=== PATIENT | female | born 2000 | race Caucasian/White ===

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

== ENCOUNTER 2020-12-31 14:26 | Emergency (ER) | payer OTHER ==
[2020-12-31 14:36] VITALS: TEMP 98.5
[2020-12-31] MEDS ORDERED: SODIUM CHLORIDE 0.9% 500 ML 500 ML IV STA (14:47)
--- NOTE | 2020-12-31 15:05 | XR ---
EXAMINATION TYPE: XR chest 1V portable DATE OF EXAM: 12/31/2020 COMPARISON: 04/12/2019 HISTORY: Chest pain TECHNIQUE: FINDINGS: Heart and mediastinum are normal. Lungs are clear. Diaphragm is normal. Bony thorax appears normal. IMPRESSION: Normal chest. No change.
[2020-12-31 15:07] LABS: Basophils % (A) 1 %; Eosinophils # (A) 0.1 k/uL (0-0.7); Eosinophils % (A) 1 %; HCT 44.4 % (34.0-46.0); HGB 15.6 gm/dL (11.4-16.0); Lymphocytes # (A) 1.4 k/uL (1.0-4.8); Lymphocytes % (A) 27 %; MCH 31.1 pg (25.0-35.0); MCHC 35.1 g/dL (31.0-37.0); MCV 88.8 fL (80.0-100.0); Mean Platelet Volume 8.5; Monocytes # (A) 0.3 k/uL (0-1.0); Monocytes % (A) 7 %; Neutrophils # (A) 3.1 k/uL (1.3-7.7); Neutrophils % (A) 63 %; Platelet Count 169 k/uL (150-450); RBC 4.99 m/uL (3.80-5.40); RDW 11.9 % (11.5-15.5)
[2020-12-31 15:22] LABS: D-Dimer 0.25 mg/L FEU (<0.60); INR 1.2 (<1.2); Partial Thromboplastin Time 25.8 sec (22.0-30.0); Prothrombin Time 12.5 sec (9.0-12.0)
[2020-12-31 15:39] LABS: ALT 8 U/L (4-34); AST 18 U/L (14-36); African American GFR (CKD) >90 (>60 ml/min/1.73 sqM); Albumin 4.8 g/dL (3.5-5.0); Alkaline Phosphatase 52 U/L (38-126); Anion Gap 12 mmol/L; Blood Urea Nitrogen 12 mg/dL (7-17); Calcium 9.7 mg/dL (8.4-10.2); Carbon Dioxide 21 mmol/L (22-30); Chloride 106 mmol/L (98-107); Glucose 85 mg/dL (74-99); Lipase 67 U/L (23-300); Magnesium 1.9 mg/dL (1.6-2.3); Non-African American GFR(CKD) >90 (>60 ml/min/1.73 sqM); Potassium 3.7 mmol/L (3.5-5.1); Sodium 139 mmol/L (137-145); Total Bilirubin 0.9 mg/dL (0.2-1.3); Total Protein 7.7 g/dL (6.3-8.2)
[2020-12-31] MEDS ORDERED: KETOROLAC 15 MG/ML 1 ML VIAL IVP STA (15:57)
[2020-12-31 16:14] VITALS: BP 106/63; PULSE 75; RESP 16
--- NOTE | 2020-12-31 16:32 | ED ---
General Adult HPI - General Chief complaint: Chest Pain Stated complaint: Chest Pain Time Seen by Provider: 12/31/20 14:40 Source: patient Mode of arrival: wheelchair Limitations: no limitations - History of Present Illness Initial comments: 20-year-old female presents to the emergency room for a chief complaint of chest pain. Patient reports she has left-sided anterior chest pain that is very sharp in nature. States it comes and goes. States it has been ongoing for about 30 minutes prior to arrival. Patient states that it hurts worse when she breathes a deep breath. Patient states she has had the same before and seen cardiology. She had a Holter monitor placed with only findings being "an early heartbeat." She denies any shortness of breath with this. Denies any swelling of her legs. Denies any calf pain. Denies oral contraceptive pills.Patient has no other complaints at this time including shortness of breath, abdominal pain, nausea or vomiting, headache, or visual changes. - Related Data Home Medications Medication Instructions Recorded Confirmed No Known Home Medications 12/31/20 12/31/20 Allergies Allergy/AdvReac Type Severity Reaction Status Date / Time dexamethasone [From Decadron] Allergy Swelling Verified 12/31/20 15:56 dexamethasone sod phosphate Allergy Swelling Verified 12/31/20 15:56 [From Decadron] dexmethylphenidate HCl Allergy Nausea & Verified 12/31/20 15:56 [From Focalin] Vomiting methylphenidate HCl Allergy Unknown Verified 12/31/20 15:56 [From Concerta] sulfamethoxazole Allergy Unknown Verified 12/31/20 15:56 [From Bactrim] trimethoprim [From Bactrim] Allergy Unknown Verified 12/31/20 15:56 Review of Systems ROS Statement: Those systems with pertinent positive or pertinent negative responses have been documented in the HPI. ROS Other: All systems not noted in ROS Statement are negative. Past Medical History Past Medical History: Asthma Additional Past Medical History / Comment(s): scoliosis, add, History of Any Multi-Drug Resistant Organisms: MRSA Date of last positivie culture/infection: 2018 MDRO Source:: left hip, leg Past Surgical History: Appendectomy, Ear Surgery, Tonsillectomy Past Psychological History: ADD/ADHD Smoking Status: Never smoker Past Alcohol Use History: None Reported Past Drug Use History: None Reported - Past Family History Mother Family Medical History: No Reported History General Exam Limitations: no limitations General appearance: alert, in no apparent distress Head exam: Present: atraumatic Eye exam: Present: normal appearance, PERRL, EOMI. Absent: scleral icterus, conjunctival injection ENT exam: Present: normal exam, mucous membranes moist Neck exam: Present: normal inspection, full ROM. Absent: tenderness Respiratory exam: Present: normal lung sounds bilaterally. Absent: respiratory distress, wheezes, rales, rhonchi, stridor Cardiovascular Exam: Present: regular rate, normal rhythm, normal heart sounds GI/Abdominal exam: Present: soft, normal bowel sounds. Absent: distended, tenderness, guarding, rebound, rigid Neurological exam: Present: alert Course Vital Signs 12/31/20 12/31/20 14:34 16:13 Temperature 98.5 F Pulse Rate 107 H 75 Respiratory 17 16 Rate Blood Pressure 113/81 106/63 O2 Sat by Pulse 98 100 Oximetry EKG Findings - EKG Comments: EKG Findings:: NSR, vent rate 64, pr int 140, qtc 404 Medical Decision Making - Medical Decision Making Vitals are stable. CXR immediately obtained, no pneumothorax. EKG is nonischemic. CBC CMP unremarkable. Troponin is negative. D-dimer is negative. HCG negative. Patient given Toradol did have improvement in symptoms. Symptoms are atypical and reproducible. No typical symptoms such as shortness of breath, radiating pain, diaphoresis, nausea. At this time patient will follow up again with cardiology and return here for any worsening symptoms. Discussed case with Dr Kaiser - Lab Data Result diagrams: 12/31/20 14:45 12/31/20 14:45 Lab Results 12/31/20 12/31/20 12/31/20 Range/Units 14:45 14:45 14:45 WBC 5.0 (4.0-11.0) k/uL RBC 4.99 (3.80-5.40) m/uL Hgb 15.6 (11.4-16.0) gm/dL Hct 44.4 (34.0-46.0) % MCV 88.8 (80.0-100.0) fL MCH 31.1 (25.0-35.0) pg MCHC 35.1 (31.0-37.0) g/dL RDW 11.9 (11.5-15.5) % Plt Count 169 (150-450) k/uL MPV 8.5 Neutrophils % 63 % Lymphocytes % 27 % Monocytes % 7 % Eosinophils % 1 % Basophils % 1 % Neutrophils # 3.1 (1.3-7.7) k/uL Lymphocytes # 1.4 (1.0-4.8) k/uL Monocytes # 0.3 (0-1.0) k/uL Eosinophils # 0.1 (0-0.7) k/uL Basophils # 0.0 (0-0.2) k/uL PT 12.5 H (9.0-12.0) sec INR 1.2 H (<1.2) APTT 25.8 (22.0-30.0) sec D-Dimer 0.25 (<0.60) mg/L FEU Sodium 139 (137-145) mmol/L Potassium 3.7 (3.5-5.1) mmol/L Chloride 106 (98-107) mmol/L Carbon Dioxide 21 L (22-30) mmol/L Anion Gap 12 mmol/L BUN 12 (7-17) mg/dL Creatinine 0.79 (0.52-1.04) mg/dL Est GFR (CKD-EPI)AfAm >90 (>60 ml/min/1.73 sqM) Est GFR (CKD-EPI)NonAf >90 (>60 ml/min/1.73 sqM) Glucose 85 (74-99) mg/dL Calcium 9.7 (8.4-10.2) mg/dL Magnesium 1.9 (1.6-2.3) mg/dL Total Bilirubin 0.9 (0.2-1.3) mg/dL AST 18 (14-36) U/L ALT 8 (4-34) U/L Alkaline Phosphatase 52 (38-126) U/L Troponin I (0.000-0.034) ng/mL Total Protein 7.7 (6.3-8.2) g/dL Albumin 4.8 (3.5-5.0) g/dL Lipase 67 (23-300) U/L Urine HCG, Qual (Not Detectd) 12/31/20 12/31/20 Range/Units 14:45 14:45 WBC (4.0-11.0) k/uL RBC (3.80-5.40) m/uL Hgb (11.4-16.0) gm/dL Hct (34.0-46.0) % MCV (80.0-100.0) fL MCH (25.0-35.0) pg MCHC (31.0-37.0) g/dL RDW (11.5-15.5) % Plt Count (150-450) k/uL MPV Neutrophils % % Lymphocytes % % Monocytes % % Eosinophils % % Basophils % % Neutrophils # (1.3-7.7) k/uL Lymphocytes # (1.0-4.8) k/uL Monocytes # (0-1.0) k/uL Eosinophils # (0-0.7) k/uL Basophils # (0-0.2) k/uL PT (9.0-12.0) sec INR (<1.2) APTT (22.0-30.0) sec D-Dimer (<0.60) mg/L FEU Sodium (137-145) mmol/L Potassium (3.5-5.1) mmol/L Chloride (98-107) mmol/L Carbon Dioxide (22-30) mmol/L Anion Gap mmol/L BUN (7-17) mg/dL Creatinine (0.52-1.04) mg/dL Est GFR (CKD-EPI)AfAm (>60 ml/min/1.73 sqM) Est GFR (CKD-EPI)NonAf (>60 ml/min/1.73 sqM) Glucose (74-99) mg/dL Calcium (8.4-10.2) mg/dL Magnesium (1.6-2.3) mg/dL Total Bilirubin (0.2-1.3) mg/dL AST (14-36) U/L ALT (4-34) U/L Alkaline Phosphatase (38-126) U/L Troponin I <0.012 (0.000-0.034) ng/mL Total Protein (6.3-8.2) g/dL Albumin (3.5-5.0) g/dL Lipase (23-300) U/L Urine HCG, Qual Not Detected (Not Detectd) Disposition Clinical Impression: Atypical chest pain Disposition: HOME SELF-CARE Condition: Good Instructions (If sedation given, give patient instructions): Chest Pain (ED), Costochondritis (ED) Additional Instructions: Take Motrin and Tylenol for pain. Please follow-up with your doctor in one to 2 days. Return to the emergency room for any worsening symptoms. Is patient prescribed a controlled substance at d/c from ED?: No Referrals: Henry Mejía DO [Primary Care Provider] - 1-2 days Time of Disposition: 16:41
== END 2020-12-31 16:51 | disposition home or self-care (01) ==
LOC: EC 14:26
DX: R07.89 Other chest pain (principal); Z88.1 Allergy status to other antibiotic agents; Z88.2 Allergy status to sulfonamides; Z88.8 Allergy status to other drugs, medicaments and biological substances; Z90.49 Acquired absence of other specified parts of digestive tract; Z86.14 Personal history of Methicillin resistant Staphylococcus aureus infection
CPT/HCPCS: 36415; 93005; 85379; 80053; 83690; 83735; 84484; 85025; 85610; 85730; 81025; 71045; 99285; 96374; 96361; J1885

== ENCOUNTER 2021-08-13 20:32 | Emergency (ER) | payer OTHER ==
[2021-08-13 21:11] VITALS: TEMP 98.1
[2021-08-13] MEDS ORDERED: diphenhydrAMINE 50 MG/ML 1 ML VIAL IVP STA (22:16)
[2021-08-13] MEDS ORDERED: PROCHLORPERAZINE INJ 10 MG/2 ML VIAL IVP STA (22:16)
[2021-08-13] MEDS ORDERED: SODIUM CHLORIDE 0.9% 1,000 ML IV STA (22:16)
--- NOTE | 2021-08-13 22:17 | ED ---
Headache HPI - General Chief Complaint: Headache Stated Complaint: Migraine, seizure yesterday Time Seen by Provider: 08/13/21 22:00 Mode of arrival: ambulatory Limitations: no limitations - Related Data Home Medications Medication Instructions Recorded Confirmed No Known Home Medications 12/31/20 12/31/20 Allergies Allergy/AdvReac Type Severity Reaction Status Date / Time dexamethasone [From Decadron] Allergy Swelling Verified 08/13/21 21:11 dexamethasone sod phosphate Allergy Swelling Verified 08/13/21 21:11 [From Decadron] dexmethylphenidate HCl Allergy Nausea & Verified 08/13/21 21:11 [From Focalin] Vomiting methylphenidate HCl Allergy Unknown Verified 08/13/21 21:11 [From Concerta] sulfamethoxazole Allergy Unknown Verified 08/13/21 21:11 [From Bactrim] trimethoprim [From Bactrim] Allergy Unknown Verified 08/13/21 21:11 Review of Systems ROS Statement: Those systems with pertinent positive or pertinent negative responses have been documented in the HPI. ROS Other: All systems not noted in ROS Statement are negative. Past Medical History Past Medical History: Asthma Additional Past Medical History / Comment(s): scoliosis, add, History of Any Multi-Drug Resistant Organisms: MRSA Date of last positivie culture/infection: 2017 MDRO Source:: left hip, leg Past Surgical History: Appendectomy, Ear Surgery, Tonsillectomy Past Psychological History: ADD/ADHD Smoking Status: Never smoker Past Alcohol Use History: None Reported Past Drug Use History: None Reported - Past Family History Mother Family Medical History: No Reported History General Exam Limitations: no limitations Course Vital Signs 08/13/21 08/14/21 21:04 00:28 Temperature 98.1 F Pulse Rate 80 74 Respiratory 20 16 Rate Blood Pressure 115/72 104/56 O2 Sat by Pulse 100 99 Oximetry Medical Decision Making - Lab Data Result diagrams: 08/13/21 22:28 08/13/21 22:28 Lab Results 08/13/21 08/13/21 08/13/21 Range/Units 22:28 22:28 22:28 WBC 6.3 (4.0-11.0) k/uL RBC 4.63 (3.80-5.40) m/uL Hgb 14.4 (11.4-16.0) gm/dL Hct 41.7 (34.0-46.0) % MCV 90.0 (80.0-100.0) fL MCH 31.1 (25.0-35.0) pg MCHC 34.5 (31.0-37.0) g/dL RDW 11.6 (11.5-15.5) % Plt Count 191 (150-450) k/uL MPV 8.1 Neutrophils % 59 % Lymphocytes % 32 % Monocytes % 6 % Eosinophils % 1 % Basophils % 0 % Neutrophils # 3.7 (1.3-7.7) k/uL Lymphocytes # 2.0 (1.0-4.8) k/uL Monocytes # 0.4 (0-1.0) k/uL Eosinophils # 0.1 (0-0.7) k/uL Basophils # 0.0 (0-0.2) k/uL Sodium 137 (137-145) mmol/L Potassium 4.0 (3.5-5.1) mmol/L Chloride 104 (98-107) mmol/L Carbon Dioxide 24 (22-30) mmol/L Anion Gap 9 mmol/L BUN 8 (7-17) mg/dL Creatinine 0.75 (0.52-1.04) mg/dL Est GFR (CKD-EPI)AfAm >90 (>60 ml/min/1.73 sqM) Est GFR (CKD-EPI)NonAf >90 (>60 ml/min/1.73 sqM) Glucose 86 (74-99) mg/dL Plasma Lactic Acid Alexys (0.7-2.0) mmol/L Calcium 9.7 (8.4-10.2) mg/dL Phosphorus 3.8 (2.5-4.5) mg/dL Magnesium 1.8 (1.6-2.3) mg/dL Total Bilirubin 0.5 (0.2-1.3) mg/dL AST 20 (14-36) U/L ALT 7 (4-34) U/L Alkaline Phosphatase 46 (38-126) U/L Total Protein 7.0 (6.3-8.2) g/dL Albumin 4.3 (3.5-5.0) g/dL Urine Color Yellow Urine Appearance Clear (Clear) Urine pH 5.5 (5.0-8.0) Ur Specific [place] 1.016 (1.001-1.035) Urine Protein Negative (Negative) Urine Glucose (UA) Negative (Negative) Urine Ketones Negative (Negative) Urine Blood Negative (Negative) Urine Nitrite Negative (Negative) Urine Bilirubin Negative (Negative) Urine Urobilinogen <2.0 (<2.0) mg/dL Ur Leukocyte Esterase Large H (Negative) Urine RBC 1 (0-5) /hpf Urine WBC 12 H (0-5) /hpf Ur Squamous Epith Cells 3 (0-4) /hpf Urine Bacteria Rare H (None) /hpf Urine Mucus Rare H (None) /hpf Urine HCG, Qual (Not Detectd) Urine Opiates Screen (NotDetected) Ur Oxycodone Screen (NotDetected) Urine Methadone Screen (NotDetected) Ur Propoxyphene Screen (NotDetected) Ur Barbiturates Screen (NotDetected) U Tricyclic Antidepress (NotDetected) Ur Phencyclidine Scrn (NotDetected) Ur Amphetamines Screen (NotDetected) U Methamphetamines Scrn (NotDetected) U Benzodiazepines Scrn (NotDetected) Urine Cocaine Screen (NotDetected) U Marijuana (THC) Screen (NotDetected) 08/13/21 08/13/21 08/13/21 Range/Units 22:28 22:28 22:28 WBC (4.0-11.0) k/uL RBC (3.80-5.40) m/uL Hgb (11.4-16.0) gm/dL Hct (34.0-46.0) % MCV (80.0-100.0) fL MCH (25.0-35.0) pg MCHC (31.0-37.0) g/dL RDW (11.5-15.5) % Plt Count (150-450) k/uL MPV Neutrophils % % Lymphocytes % % Monocytes % % Eosinophils % % Basophils % % Neutrophils # (1.3-7.7) k/uL Lymphocytes # (1.0-4.8) k/uL Monocytes # (0-1.0) k/uL Eosinophils # (0-0.7) k/uL Basophils # (0-0.2) k/uL Sodium (137-145) mmol/L Potassium (3.5-5.1) mmol/L Chloride (98-107) mmol/L Carbon Dioxide (22-30) mmol/L Anion Gap mmol/L BUN (7-17) mg/dL Creatinine (0.52-1.04) mg/dL Est GFR (CKD-EPI)AfAm (>60 ml/min/1.73 sqM) Est GFR (CKD-EPI)NonAf (>60 ml/min/1.73 sqM) Glucose (74-99) mg/dL Plasma Lactic Acid Alexys 0.6 L (0.7-2.0) mmol/L Calcium (8.4-10.2) mg/dL Phosphorus (2.5-4.5) mg/dL Magnesium (1.6-2.3) mg/dL Total Bilirubin (0.2-1.3) mg/dL AST (14-36) U/L ALT (4-34) U/L Alkaline Phosphatase (38-126) U/L Total Protein (6.3-8.2) g/dL Albumin (3.5-5.0) g/dL Urine Color Urine Appearance (Clear) Urine pH (5.0-8.0) Ur Specific [place] (1.001-1.035) Urine Protein (Negative) Urine Glucose (UA) (Negative) Urine Ketones (Negative) Urine Blood (Negative) Urine Nitrite (Negative) Urine Bilirubin (Negative) Urine Urobilinogen (<2.0) mg/dL Ur Leukocyte Esterase (Negative) Urine RBC (0-5) /hpf Urine WBC (0-5) /hpf Ur Squamous Epith Cells (0-4) /hpf Urine Bacteria (None) /hpf Urine Mucus (None) /hpf Urine HCG, Qual Not Detected (Not Detectd) Urine Opiates Screen Not Detected (NotDetected) Ur Oxycodone Screen Not Detected (NotDetected) Urine Methadone Screen Not Detected (NotDetected) Ur Propoxyphene Screen Not Detected (NotDetected) Ur Barbiturates Screen Not Detected (NotDetected) U Tricyclic Antidepress Not Detected (NotDetected) Ur Phencyclidine Scrn Not Detected (NotDetected) Ur Amphetamines Screen Not Detected (NotDetected) U Methamphetamines Scrn Not Detected (NotDetected) U Benzodiazepines Scrn Not Detected (NotDetected) Urine Cocaine Screen Not Detected (NotDetected) U Marijuana (THC) Screen Detected H (NotDetected) Disposition Clinical Impression: Migraine headache, Headache Disposition: HOME SELF-CARE Condition: Good Instructions (If sedation given, give patient instructions): Acute Headache (ED) Is patient prescribed a controlled substance at d/c from ED?: No Referrals: Henry Mejía DO [Primary Care Provider] - 1-2 days
[2021-08-13 22:45] LABS: Basophils % (A) 0 %; Eosinophils # (A) 0.1 k/uL (0-0.7); Eosinophils % (A) 1 %; HCT 41.7 % (34.0-46.0); HGB 14.4 gm/dL (11.4-16.0); Lymphocytes % (A) 32 %; MCH 31.1 pg (25.0-35.0); MCHC 34.5 g/dL (31.0-37.0); Mean Platelet Volume 8.1; Monocytes # (A) 0.4 k/uL (0-1.0); Monocytes % (A) 6 %; Neutrophils # (A) 3.7 k/uL (1.3-7.7); Neutrophils % (A) 59 %; Platelet Count 191 k/uL (150-450); RBC 4.63 m/uL (3.80-5.40); RDW 11.6 % (11.5-15.5); WBC 6.3 k/uL (4.0-11.0)
[2021-08-13 22:50] LABS: Appearance,Urine Clear (Clear); Bacteria,Urine Rare /hpf; Bilirubin,Urine Negative (Negative); Blood,Urine Negative (Negative); Color,Urine Yellow; Glucose,Urine (UA) Negative (Negative); Ketones,Urine Negative (Negative); Leukocyte Esterase,Urine Large (Negative); Mucus,Urine Rare /hpf; Nitrite,Urine Negative (Negative); PH, Urine 5.5 (5.0-8.0); Protein,Urine Negative (Negative); RBC,Urine 1 /hpf (0-5); Specific Gravity,Urine 1.016 (1.001-1.035); Squamous Epithelial Cell,Urine 3 /hpf (0-4); Urobilinogen,Urine <2.0 mg/dL (<2.0); WBC,Urine 12 /hpf (0-5)
[2021-08-13 22:58] LABS: ALT 7 U/L (4-34); AST 20 U/L (14-36); African American GFR (CKD) >90 (>60 ml/min/1.73 sqM); Albumin 4.3 g/dL (3.5-5.0); Alkaline Phosphatase 46 U/L (38-126); Anion Gap 9 mmol/L; Blood Urea Nitrogen 8 mg/dL (7-17); Calcium 9.7 mg/dL (8.4-10.2); Carbon Dioxide 24 mmol/L (22-30); Chloride 104 mmol/L (98-107); Glucose 86 mg/dL (74-99); Magnesium 1.8 mg/dL (1.6-2.3); Non-African American GFR(CKD) >90 (>60 ml/min/1.73 sqM); Phosphorus 3.8 mg/dL (2.5-4.5); Sodium 137 mmol/L (137-145); Total Bilirubin 0.5 mg/dL (0.2-1.3)
[2021-08-13 22:59] LABS: Amphetamine Screen,Urine Not Detected (NotDetected); Barbiturate Screen,Urine Not Detected (NotDetected); Benzodiazepines Screen,Urine Not Detected (NotDetected); Cocaine Screen,Urine Not Detected (NotDetected); Methadone Screen, Urine Not Detected (NotDetected); Opiate Screen,Urine Not Detected (NotDetected); Oxycodone Screen, Urine Not Detected (NotDetected); Phencyclidine Screen,Urine Not Detected (NotDetected); Tricyclic Antidepressant,Urine Not Detected (NotDetected); Urn Cannabinoid Scrn Detected (NotDetected)
--- NOTE | 2021-08-13 23:19 | CT ---
EXAMINATION TYPE: CT brain wo con DATE OF EXAM: 08/13/2021 COMPARISON: 01/08/2016 HISTORY: Seizure, Headache CT DLP: 1026 mGycm Automated exposure control for dose reduction was used. Ventricles and sulci appear normal. There is no mass effect nor midline shift. There is no sign of in tracranial hemorrhage. Calvarium is intact. There is no evidence of cerebral edema. IMPRESSION: Negative unenhanced head CT scan. No change.
--- NOTE | 2021-08-13 23:27 | CT ---
EXAMINATION TYPE: CT angio COW [place] DATE OF EXAM: 08/13/2021 COMPARISON: None HISTORY: Seizure, Headache CT DLP: 947.70 mGycm Automated exposure control for dose reduction was used. CONTRAST: Performed with IV Contrast, patient injected with 65 mL of Isovue 370. Images obtained from the skull base to the vertex of the brain with IV contrast. There are 3-D post p rocessed images. There is arterial flow in the vertebrobasilar artery system. There is arterial flow in the anterior m iddle and posterior cerebral arteries. There is no mass effect. I see no evidence of intracranial ane urysm or neovascularity. There is no evidence of hemodynamic stenosis. There is normal enhancement of the venous sinuses. IMPRESSION: Negative CT angiogram of the brain.
[2021-08-13] MEDS ORDERED: KETOROLAC 15 MG/ML 1 ML VIAL IVP STA (23:30)
[2021-08-14 00:29] VITALS: BP 104/56; PULSE 74; RESP 16
== END 2021-08-14 01:13 | disposition home or self-care (01) ==
LOC: EC 20:32
DX: G43.909 Migraine, unspecified, not intractable, without status migrainosus (principal); J45.909 Unspecified asthma, uncomplicated; F90.9 Attention-deficit hyperactivity disorder, unspecified type; Z88.1 Allergy status to other antibiotic agents; Z88.2 Allergy status to sulfonamides; Z90.89 Acquired absence of other organs; Z90.49 Acquired absence of other specified parts of digestive tract
CPT/HCPCS: 99284; 96365; 96375 ×3; 96361; 36415; 80053; 83605; 83735; 84100; 85025; 81001; 81025; 80306; 70496; 70450; J1200; J0780; J2930; J1885; Q9967

== ENCOUNTER 2021-10-02 11:22 | Emergency (ER) | payer OTHER ==
[2021-10-02 12:06] VITALS: RESP 18
--- NOTE | 2021-10-02 13:03 | XR ---
EXAMINATION TYPE: XR chest 2V DATE OF EXAM: 10/02/2021 COMPARISON: NONE TECHNIQUE: PA and lateral views submitted. HISTORY: Cough FINDINGS: The lungs are clear and there is no pneumothorax, pleural effusion, or focal pneumonia. Mild hyperi nflation. IMPRESSION: 1. No acute process.
--- NOTE | 2021-10-02 14:04 | ED ---
General Adult HPI - General Chief complaint: Upper Respiratory Infection Stated complaint: fever, cough, SOB Source: patient, RN notes reviewed Mode of arrival: ambulatory Limitations: no limitations - History of Present Illness Initial comments: 20-year-old female with a past medical history of asthma presents to the emergency room for a chief complaint of cough. Patient has had a cough and congestion for 3-4 days. No fevers. No shortness of breath. Denies sore throat.Patient has no other complaints at this time including shortness of breath, chest pain, abdominal pain, nausea or vomiting, headache, or visual changes. - Related Data Home Medications Medication Instructions Recorded Confirmed Albuterol Inhaler [Ventolin Hfa 2 puff INHALATION RT-QID PRN 10/02/21 10/02/21 Inhaler] Albuterol Nebulized [Ventolin 2.5 mg INHALATION RT-Q6H PRN 10/02/21 10/02/21 Nebulized] Aspirin/Acetaminophen/Caffeine 1 tab PO BID PRN 10/02/21 10/02/21 [Excedrin Migraine Caplet] Allergies Allergy/AdvReac Type Severity Reaction Status Date / Time dexamethasone [From Decadron] Allergy Swelling Verified 10/02/21 14:00 dexamethasone sod phosphate Allergy Swelling Verified 10/02/21 14:00 [From Decadron] dexmethylphenidate HCl Allergy Nausea & Verified 10/02/21 14:00 [From Focalin] Vomiting methylphenidate HCl Allergy Unknown Verified 10/02/21 14:00 [From Concerta] sulfamethoxazole Allergy Unknown Verified 10/02/21 14:00 [From Bactrim] trimethoprim [From Bactrim] Allergy Unknown Verified 10/02/21 14:00 Review of Systems ROS Statement: Those systems with pertinent positive or pertinent negative responses have been documented in the HPI. ROS Other: All systems not noted in ROS Statement are negative. Past Medical History Past Medical History: Asthma Additional Past Medical History / Comment(s): scoliosis, add, History of Any Multi-Drug Resistant Organisms: MRSA Date of last positivie culture/infection: 2018 MDRO Source:: left hip, leg Past Surgical History: Appendectomy, Ear Surgery, Tonsillectomy Past Psychological History: ADD/ADHD Smoking Status: Never smoker Past Alcohol Use History: None Reported Past Drug Use History: Marijuana - Past Family History Mother Family Medical History: No Reported History General Exam Limitations: no limitations General appearance: alert, in no apparent distress Head exam: Present: atraumatic Eye exam: Present: normal appearance, PERRL, EOMI. Absent: scleral icterus, conjunctival injection ENT exam: Present: normal exam, mucous membranes moist Neck exam: Present: normal inspection, full ROM. Absent: tenderness Respiratory exam: Present: normal lung sounds bilaterally. Absent: respiratory distress, wheezes Cardiovascular Exam: Present: regular rate, normal rhythm, normal heart sounds GI/Abdominal exam: Present: soft, normal bowel sounds. Absent: distended, tenderness Neurological exam: Present: alert Course Vital Signs 10/02/21 12:02 Temperature 98.6 F Pulse Rate 95 Respiratory 18 Rate Blood Pressure 101/63 O2 Sat by Pulse 98 Oximetry Medical Decision Making - Medical Decision Making Patient is well-appearing. No respiratory distress. Vitals are stable. Coronavirus and chest x-ray are unremarkable. No acute process. At this time patient can be discharged home to follow up with primary care. Will return here for any worsening symptoms. - Lab Data Lab Results 10/02/21 Range/Units 12:47 Coronavirus (PCR) Not Detected (Not Detectd) Disposition Clinical Impression: Cough, Sinusitis Disposition: HOME SELF-CARE Condition: Good Instructions (If sedation given, give patient instructions): Upper Respiratory Infection (ED) Additional Instructions: Please take [id number] cold and flu medications. Follow-up with your doctor. Return to the emergency room for any worsening symptoms. Is patient prescribed a controlled substance at d/c from ED?: No Referrals: Henry Mejía DO [Primary Care Provider] - 1-2 days Time of Disposition: 14:04
[2021-10-02 14:17] VITALS: BP 106/66; PULSE 67; TEMP 98.3
== END 2021-10-02 14:16 | disposition home or self-care (01) ==
LOC: EC 11:22
DX: J32.9 Chronic sinusitis, unspecified (principal); J45.909 Unspecified asthma, uncomplicated; F12.90 Cannabis use, unspecified, uncomplicated; Z79.82 Long term (current) use of aspirin; Z79.51 Long term (current) use of inhaled steroids; Z88.1 Allergy status to other antibiotic agents; Z88.2 Allergy status to sulfonamides; Z88.8 Allergy status to other drugs, medicaments and biological substances; Z90.49 Acquired absence of other specified parts of digestive tract; Z20.822 Contact with and (suspected) exposure to COVID-19
CPT/HCPCS: 71046; 87635; 99283

== ENCOUNTER → 2022-05-30 | Outpatient (CLI) | payer OTHER ==
--- NOTE | 2022-05-31 07:39 | US ---
EXAMINATION TYPE: US OB >= 14 wk fetus DATE OF EXAM: 05/30/2022 COMPARISON: None CLINICAL HISTORY: Z36. SCREENING TECHNIQUE: Transabdominal (TA) GESTATIONAL AGE / DATING Physician Established: (19 weeks/3 days) EDC: 10-21-22 Dates by LMP: LMP unknown Dates by First Scan: no previous at this facility Dates by Current Scan: (19 weeks/1 days) EDC: 10-23-22 SURVEY IUP: Single PLACENTA: Anterior PREVIA: No Previa VERNON: 10.7 cm CERVICAL LENGTH (transabdominal: norm > 3.0cm): 3.2 cm BIOMETRY PRESENTATION: Breech BPD: 4.3 cm 19 weeks / 1 days HC: 15.9 cm 18 weeks / 6 days AC: 13.5 cm 19 weeks / 0 days FL: 3.0 cm 19 weeks / 2 days ESTIMATED WEIGHT IN GRAMS: 272 grams ESTIMATED WEIGHT IN LBS/OZ: 0 lbs. 10 oz. WEIGHT PERCENTAGE BASED ON ESTABLISHED DATES: 26% HC/AC: 1.18 FL/AC: 22 HEART RATE: 139 bpm RHYTHM: Normal IMPRESSION: Single viable intrauterine .
== END | disposition home or self-care (01) ==
LOC: RADUSWWP 15:11
PROVIDERS: ATTEND Obstetrics & Gynecology
DX: Z36.0 Encounter for antenatal screening for chromosomal anomalies (principal); Z3A.19 19 weeks gestation of pregnancy
CPT/HCPCS: 76805

== ENCOUNTER 2022-10-13 11:21 | Inpatient (IN) | payer OTHER ==
[2022-10-13] MEDS ORDERED: LIDOCAINE 0.5% (PF) 5 MG/ML (50 ML SDV) SQ PRN (12:16)
[2022-10-13] MEDS ORDERED: TERBUTALINE 1 MG/ML VIAL SQ PRN (12:16)
[2022-10-13] MEDS ORDERED: OXYTOCIN 30 UNITS/500 ML NS 30 UNIT in SALINE 1 500ML.BAG IV SCH ×2 (12:30→21:58)
[2022-10-13] MEDS: LACTATED RINGERS 1,000 ML IV SCH ×2 (13:01→21:14)
[2022-10-13 13:13] LABS: Basophils % (A) 0 %; Eosinophils % (A) 0 %; HCT 40.1 % (34.0-46.0); HGB 14.2 gm/dL (11.4-16.0); Lymphocytes # (A) 1.6 k/uL (1.0-4.8); Lymphocytes % (A) 18 %; MCH 32.6 pg (25.0-35.0); MCHC 35.4 g/dL (31.0-37.0); MCV 92.1 fL (80.0-100.0); Mean Platelet Volume 9.1; Monocytes # (A) 0.5 k/uL (0-1.0); Monocytes % (A) 6 %; Neutrophils # (A) 6.4 k/uL (1.3-7.7); Neutrophils % (A) 74 %; Platelet Count 138 k/uL (150-450); RBC 4.36 m/uL (3.80-5.40); RDW 12.7 % (11.5-15.5); WBC 8.7 k/uL (3.8-10.6)
--- NOTE | 2022-10-13 13:40 | P.HPOB ---
History of Present Illness H&P Date: 10/13/22 Chief Complaint: Spontaneous rupture of membranes This is a 21-year-old female 2 para 1 with an estimated date of confinement of 10/21/2022, estimated gestational age of 38-6/7 weeks, who presents to labor and delivery with complaints of spontaneous rupture of membra lester at approximately 9:30 AM clear fluid noted. She has not been feeling any regular contractions, just some lower back pain. course has been essentially uncomplicated. labs: Blood type-A+ Antibody [id number] RPR-nonreactive Rubella-immune Hepatitis B surface antigen-negative nonreactive Hepatitis C-nonreactive HIV-nonreactive EDS-positive for THC at the beginning of her 1 hour Glucola-102 GBS-negative Obstetrical history: . History of 1 vaginal delivery at term with no complications. Gynecologic history: History of chlamydia treated years ago. Social history: She is single. She is unemployed. Review of Systems Constitutional: Denies chills, Denies fever Eyes: denies blurred vision, denies pain Ears, nose, mouth and throat: Denies headache, Denies sore throat Cardiovascular: Denies chest pain, Denies shortness of breath Respiratory: Denies cough Gastrointestinal: Reports abdominal pain (Irregular contractions) Genitourinary: Reports pelvic pain, Reports Musculoskeletal: Reports low back pain Integumentary: Denies pruritus, Denies rash Neurological: Denies numbness, Denies weakness Psychiatric: Reports difficulty concentrating, Denies anxiety, Denies depression Past Medical History Past Medical History: Asthma Additional Past Medical History / Comment(s): scoliosis, add, history of patent foramen ovale and arrhythmia-no meds History of Any Multi-Drug Resistant Organisms: MRSA Date of last positivie culture/infection: 2017 MDRO Source:: left hip, leg Past Surgical History: Appendectomy, Ear Surgery, Tonsillectomy Past Psychological History: ADD/ADHD Smoking Status: Former smoker Past Alcohol Use History: Occasional Past Drug Use History: Marijuana (Denies any use since the beginning of ) - Past Family History Mother Family Medical History: No Reported History Medications and Allergies Home Medications Medication Instructions Recorded Confirmed Type Albuterol Inhaler [Ventolin Hfa 2 puff INHALATION RT-QID PRN 10/02/21 10/13/22 History Inhaler] Allergies Allergy/AdvReac Type Severity Reaction Status Date / Time dexamethasone [From Decadron] Allergy Swelling Verified 10/13/22 11:52 dexamethasone sod phosphate Allergy Swelling Verified 10/13/22 11:52 [From Decadron] dexmethylphenidate HCl Allergy Nausea & Verified 10/13/22 11:52 [From Focalin] Vomiting latex Allergy Rash/Hives Verified 10/13/22 11:52 methylphenidate HCl Allergy Unknown Verified 10/13/22 11:52 [From Concerta] sulfamethoxazole Allergy Unknown Verified 10/13/22 11:52 [From Bactrim] trimethoprim [From Bactrim] Allergy Unknown Verified 10/13/22 11:52 Exam Osteopathic Statement: *. No significant issues noted on an osteopathic structural exam other than those noted in the History and Physical/Consult. Vital Signs Temp Pulse Resp BP Pulse Ox 10/13/22 11:49 97.1 F L 91 16 119/60 97 Intake and Output 10/12/22 10/13/22 10/13/22 22:59 06:59 14:59 Other: Weight 75.296 kg HEENT: Within normal limits Heart: Regular rate and rhythm Lungs: Clear to auscultation bilaterally Abdomen: Cervix: 1-1/2 cm/70%/-2 station. Positive amnisure. Clear fluid noted earlier. heart tones: Category 1 Contractions: Irregular Extremities: Negative Homans Results Result Diagrams: 10/13/22 12:36 Abnormal Lab Results - Last 24 Hours (Table) 10/13/22 Range/Units 12:36 Plt Count 138 L (150-450) k/uL Assessment and Plan (1) 38 weeks gestation of Current Visit: Yes Status: Acute Code(s): Z3A.38 - 38 WEEKS GESTATION OF SNOMED Code(s): 87774641 Plan: Admission for spontaneous rupture of membranes. Oxytocin augmentation of labor. Epidural anesthesia if desired. Expectant management.
[2022-10-13 15:43] LABS: Amphetamine Screen,Urine Not Detected (NotDetected); Barbiturate Screen,Urine Not Detected (NotDetected); Benzodiazepines Screen,Urine Not Detected (NotDetected); Cocaine Screen,Urine Not Detected (NotDetected); Methadone Screen, Urine Not Detected (NotDetected); Opiate Screen,Urine Not Detected (NotDetected); Oxycodone Screen, Urine Not Detected (NotDetected); Phencyclidine Screen,Urine Not Detected (NotDetected); Tricyclic Antidepressant,Urine Not Detected (NotDetected); Urn Cannabinoid Scrn Not Detected (NotDetected)
[2022-10-13] MEDS: BUTORPHANOL 1 MG/ML 1 ML VIAL IV PRN ×2 (16:50→19:30)
--- NOTE | 2022-10-13 21:11 | P.PROBDLV ---
Vaginal Delivery Note - . Vaginal Delivery Note: The patient progressed to complete dilation after oxytocin augmentation of labor and several doses of Stadol. She was unable to get an epidural due to spina bifida. She reached approximately 4-1/2 cm and had not made change in over an hour despite regular contractions and then got up to the bathroom and while on the toilet felt more pressure. She is brought back to the bed and found to be completely dilated and she cannot stop herself from pushing. She rather pr ecipitously delivered the 's head followed by the body with nuchal cord times one reduced around the with delivery. Nose and mouth are bulb suctioned. Cord was clamped and cut and infant was taken to warmer for evaluation. A viable female was noted with scores of 8 at 1 minute and 8 at 5 minutes and infant weight of 6 lbs. 13 oz. Placenta delivered shortly thereafter, intact, with a three-vessel cord. Uterus contracted fairly well after oxytocin was given and uterine massage was carried out. Inspection of the perineum revealed a small right periurethral laceration. This area was anesthetized with 1% lidocaine and then sutured with 3-0 Vicryl suture in a running locked fashion. Estimated blood loss is approximately 150 mL's. Mother and are in stable condition.
[2022-10-13] MEDS ORDERED: ALBUTEROL HFA INHALER INHALATION PRN (21:29)
--- NOTE | 2022-10-13 21:32 | P.PN ---
Progress Note - Text Progress Note Date: 10/13/22 After delivery I spoke with the patient alone in her room and advised her that her drug screen was positive for amphetamines. She states the only thing she can think of that she did use a cold medicine that was "Tylenol with something" about a week ago. She denies use of anything else. She was advised that we would screen the baby's meconium and that we would be watching baby to monitor for any signs of withdrawal. She also understands that social science manager will be consulted.
[2022-10-13] MEDS ORDERED: diphenhydrAMINE 50 MG/ML 1 ML VIAL IVP PRN ×2 (21:58)
[2022-10-13] MEDS ORDERED: SIMETHICONE 80 MG CHEWABLE PO PRN (21:58)
[2022-10-13] MEDS ORDERED: ZOLPIDEM 5 MG TAB PO PRN (21:58)
[2022-10-13] MEDS ORDERED: LANOLIN CREAM 5 GM TUBE TOPICAL PRN (21:58)
[2022-10-13] MEDS ORDERED: diphenhydrAMINE 25 MG CAP PO PRN (21:58)
[2022-10-13] MEDS ORDERED: diphenhydrAMINE 50 MG CAP PO PRN (21:58)
[2022-10-13] MEDS ORDERED: BENZOCAINE/MENTHOL SPRAY 1 GM/SPRAY AEROSOL TOPICAL PRN (21:58)
[2022-10-13] MEDS ORDERED: HYDROCORTISONE 2.5% RECTAL CREAM 30 GM TUBE RECTAL PRN (21:58)
--- NOTE | 2022-10-14 02:33 | P.MSEPDOC ---
Presenting Problems - Arrival Data Date of Arrival on Unit: 10/13/22 Time of Arrival on Unit: 11:49 Mode of Transport: Wheelchair - Complaint OB-Reason for Admission/Chief Complaint: Rule Out SROM Comment: 0930 clear fluid Medical History - Information : 2 Para: 1 Term: 1 : 0 Abortions: Spontaneous or Elective: 0 Number of Living Children: 1 - Gestational Age Gestational Age by YARELIS (wks/days): 38 Weeks and 6 Days - History Complications: Hx. Substance Abuse Comment: marijuana Review of Systems - Review of Systems Constitutional: No problems Breast: No problems ENT: No problems Cardiovascular: No problems Respiratory: No problems Gastrointestinal: No problems Genitourinary: No problems Musculoskeletal: No problems Neurological: No problems Skin: No problems Vital Signs - Temperature Temperature: 98.4 F Temperature Source: Oral - Pulse Brachial Pulse Rate: 97 Pulse Assessment Method: Automatic Cuff - Respirations Respiratory Rate: 16 - Blood Pressure Right Arm Blood Pressure: 126/60 Blood Pressure Mean: 82 Blood Pressure Source: Automatic Cuff Medical Screen Scoring - Cervical Exam Dilation (cm): 1.5 Effacement (%): 0 Station: -3 Membranes: Ruptured - Uterine Contractions Frequency From (mins): 3 Frequency To (mins): 5 Duration From (seconds): 40 Duration To (seconds): 70 Intensity: Mild Resting: Soft to palpation - Assessment - Baby A Baseline FHR: 125 Heart Rate - NICHD Category: Category I (Normal) NST: Reactive Physician Notification - Physician Notified Physician Notified Date: 10/13/22 Physician Notified Time: 11:51 New Order Received: Yes (admit for augmentation) Maternal Triage Index - Non-Urgent/Priority 4 Non-Urgent Priority 4: Yes Criteria Met for Priority 4: 38 6/7 SROM Disposition - Disposition OB Disposition: Admit, Triage I agree with the RN Medical Screening Exam: Yes Case reviewed; plan agreed upon as documented in EMR&OBIX.: Yes Diagnosis: ENCOUNTER FOR FULL-TERM UNCOMPLICATED DELIVERY
[2022-10-14] MEDS: IBUPROFEN 600 MG TAB PO PRN ×3 (03:36→18:51)
--- NOTE | 2022-10-14 05:43 | P.PNOBGVD ---
Subjective - Subjective Principal diagnosis: Status post vaginal delivery day #1 Interval history: Patient is doing okay. Lochia has been minimal. Pain is been well controlled with ibuprofen. Baby is in level I nursery being observed for MIGUEL scoring due to positive drug screen for amphetamines. Patient again reiterated to be this morning that the only thing she took was a Tylenol Cold and sinus about a week ago for a cold. Other than that all she ever takes is just Tylenol. Patient reports: Reports appetite normal, Reports voiding normally, Reports pain well controlled, Reports ambulating normally [place]: other (In level I nursery for MIGUEL screening) Objective - Latest Vital Signs Latest vital signs: Vital Signs Temp Pulse Resp BP Pulse Ox 10/14/22 03:47 98.0 F 85 16 112/65 97 10/14/22 02:33 98.4 F 97 16 126/60 10/14/22 00:00 16 126/60 10/13/22 23:15 98.4 F 97 16 122/57 98 10/13/22 22:45 85 16 120/91 10/13/22 22:15 98.2 F 96 16 118/58 10/13/22 22:00 16 111/53 10/13/22 21:45 85 16 109/57 10/13/22 21:30 75 16 111/57 10/13/22 21:15 121/55 98 10/13/22 11:49 97.1 F L 91 16 119/60 97 Intake and Output 10/13/22 10/13/22 10/14/22 14:59 22:59 06:59 Intake Total 480 480 Output Total 300 Balance 480 180 Intake: Oral 480 480 Output: Output, Quantitative 300 Blood Loss Other: # Voids 2 1 Weight 75.296 kg - Exam Extremities: Present: normal. Absent: tenderness, edema Abdomen: Present: normal appearance, soft. Absent: distention, tenderness Uterus: Present: normal, firm. Absent: tenderness - Labs Labs: Abnormal Lab Results - Last 24 Hours (Table) 10/13/22 10/13/22 Range/Units 12:36 15:10 Plt Count 138 L (150-450) k/uL U Methamphetamines Scrn Detected H (NotDetected) Assessment and Plan Assessment: Status post vaginal delivery day #1 (1) 38 weeks gestation of Current Visit: Yes Status: Acute Code(s): Z3A.38 - 38 WEEKS GESTATION OF SNOMED Code(s): 31094801 Plan: Continue with care today. Anticipate discharge home tomorrow.
[2022-10-14] MEDS: SENNOSIDES-DOCUSATE SODIUM 1 EACH TAB PO SCH ×2 (09:05→22:21)
[2022-10-14 09:12] LABS: Basophils % (A) 0 %; Eosinophils # (A) 0.1 k/uL (0-0.7); Eosinophils % (A) 0 %; HCT 39.1 % (34.0-46.0); HGB 13.4 gm/dL (11.4-16.0); Lymphocytes # (A) 1.6 k/uL (1.0-4.8); Lymphocytes % (A) 14 %; MCH 32.5 pg (25.0-35.0); MCHC 34.2 g/dL (31.0-37.0); MCV 94.9 fL (80.0-100.0); Mean Platelet Volume 9.8; Monocytes # (A) 0.5 k/uL (0-1.0); Monocytes % (A) 4 %; Neutrophils # (A) 9.2 k/uL (1.3-7.7); Neutrophils % (A) 80 %; Platelet Count 128 k/uL (150-450); RBC 4.12 m/uL (3.80-5.40); RDW 12.9 % (11.5-15.5); WBC 11.5 k/uL (3.8-10.6)
[2022-10-14] MEDS: ACETAMINOPHEN TAB 325 MG TAB PO PRN ×2 (13:05→22:21)
[2022-10-15] MEDS: IBUPROFEN 600 MG TAB PO PRN ×2 (06:00→15:58)
[2022-10-15 08:18] VITALS: RESP 16
[2022-10-15] MEDS: SENNOSIDES-DOCUSATE SODIUM 1 EACH TAB PO SCH (08:19)
[2022-10-15] MEDS ORDERED: BENZOCAINE/MENTHOL LOZENG 1 EACH LOZENGE MUCOUS MEM PRN (09:08)
--- NOTE | 2022-10-15 09:23 | P.DS ---
Providers Date of admission: 10/13/22 11:49 Expected date of discharge: 10/15/22 Attending physician: Orquidea Almanzar Primary care physician: Stated None - Discharge Diagnosis(es) (1) 38 weeks gestation of Current Visit: Yes Status: Acute Hospital Course: This is a 22-year-old female 2 para 1 at 38-6/7 weeks who presented in active labor. She delivered vaginally a viable female infant on 10/13/2022 with scores of 8 at 1 minute and 8 at 5 minutes and weight of 6 lbs. 13 oz. Her course has been essentially uncomplicated. Baby did go to level I nursery for MIGUEL scoring due to positive methamphetamines on mother's drug screen. Mother denied any use of medications other than a cold medication a week prior to delivery. She is currently bottle feeding but would like to breast-feed eventually. She is pumping her breast milk. Lochia is decreasing. Her pain is fairly well controlled. She does complain of head cold symptoms with some congestion and cough today.She denies any wheezing. Vital signs are stable. Abdomen is soft with fundus firm and nontender. Extremity show negative Homans. Impression is status post vaginal delivery day #2. Plan is to discharge home today. Routine instructions are given. She will be given a prescription for ibuprofen. She has a breast pump. She is advised to follow up in the office in 6 weeks for a check. She is advised to call the office if she has any further questions or concerns prior to her appointment time. Procedures: Spontaneous vaginal delivery of a viable female on 10/13/2022 Patient Condition at Discharge: Stable Plan - Discharge Summary New Discharge Prescriptions: New Ibuprofen [Motrin] 600 mg PO Q6HR PRN #60 tab PRN Reason: Mild Pain (Scale 1 To 3) No Action Albuterol Inhaler [Ventolin Hfa Inhaler] 2 puff INHALATION RT-QID PRN PRN Reason: Shortness Of Breath Discharge Medication List Albuterol Inhaler [Ventolin Hfa Inhaler] 2 puff INHALATION RT-QID PRN 10/02/21 [History] Ibuprofen [Motrin] 600 mg PO Q6HR PRN #60 tab 10/15/22 [Rx] Follow up Appointment(s)/Referral(s): Orquidea Almanzar DO [Doctor of Osteopathic Medicine] - 6 Weeks Activity/Diet/Wound Care/Special Instructions: Instructions 1. Do not begin any exercise program for 3 weeks. 2. Do not resume sexual relations for 3 weeks or longer if uncomfortable. 3. You may take tub baths or showers at any time. 4. You may use tampons if desired after 3 weeks. 5. Keep the area of episiotomy (stitches) clean and dry. 6. If you are not nursing, wear a good fitting, supportive bra during the day and limit fluid intake for at least 1 week to prevent breast engorgement. 7. Call the office, [phone], within the next week to make appointment for your 6 week checkup if it has not already been made. 8. Report any of the following occurrences to the doctor promptly: a. Heavy, excessive bleeding b. Chills, fever c. Burning or frequency of urination d. Pain or redness and breasts if nursing e. Increasing pain or swelling in episiotomy (stitches). In addition to the above instructions, the following additional should be followed: 1. No heavy lifting or straining (exercising) until after 6 week checkup. 2. Keep abdominal incision clean and dry: You may wear a dressing if more comfortable. 3. Make office appointment for 10 days after going home or as instructed by her doctor. Discharge Disposition: HOME SELF-CARE
[2022-10-15] MEDS ORDERED: LORATADINE 10 MG TAB PO SCH (09:30)
[2022-10-15] MEDS: ACETAMINOPHEN TAB 325 MG TAB PO PRN (11:30)
[2022-10-15 16:16] VITALS: BP 122/80; PULSE 59; TEMP 97.5
== END 2022-10-15 17:45 | disposition home or self-care (01) | DRG 806 ==
LOC: FBPOP 11:21 → 4FBP 11:49
PROVIDERS: ADMIT Obstetrics & Gynecology; ATTEND Obstetrics & Gynecology
PROC: 10E0XZZ Delivery of Products of Conception, External Approach (ICD-10-PCS; principal; 2022-10-13)
PROC: 4A0HXCZ Measurement of Products of Conception, Cardiac Rate, External Approach (ICD-10-PCS; 2022-10-13)
PROC: 0UQMXZZ Repair Vulva, External Approach (ICD-10-PCS; 2022-10-13)
DX: O42.92 Full-term premature rupture of membranes, unspecified as to length of time between rupture and onset of labor (principal); O98.32 Other infections with a predominantly sexual mode of transmission complicating childbirth; Z37.0 Single live birth; O99.324 Drug use complicating childbirth; O99.354 Diseases of the nervous system complicating childbirth; O69.81X0 Labor and delivery complicated by cord around neck, without compression, not applicable or unspecified; F12.90 Cannabis use, unspecified, uncomplicated; O71.82 Other specified trauma to perineum and vulva; F90.9 Attention-deficit hyperactivity disorder, unspecified type; J00 Acute nasopharyngitis [common cold]; A56.02 Chlamydial vulvovaginitis; J45.909 Unspecified asthma, uncomplicated; M41.9 Scoliosis, unspecified; O62.3 Precipitate labor; O77.0 Labor and delivery complicated by meconium in amniotic fluid; O99.344 Other mental disorders complicating childbirth; O99.52 Diseases of the respiratory system complicating childbirth; Q05.9 Spina bifida, unspecified; Z3A.38 38 weeks gestation of pregnancy; Z87.891 Personal history of nicotine dependence; Z88.8 Allergy status to other drugs, medicaments and biological substances; Z88.2 Allergy status to sulfonamides; Z88.1 Allergy status to other antibiotic agents
CPT/HCPCS: 59025; 80306; 84112; 85025; 86850; 86900; 86901; 99213

== ENCOUNTER 2022-10-24 14:10 | Observation (INO) | payer OTHER ==
[2022-10-24] MEDS ORDERED: fentaNYL (PF) 50 MCG/ML 2 ML AMP IVP STA (14:16)
--- NOTE | 2022-10-24 14:32 | ED ---
General Adult HPI - General Stated complaint: Vaginal bleeding, Low BP Time Seen by Provider: 10/24/22 14:12 Source: patient, EMS, RN notes reviewed, old records reviewed Mode of arrival: EMS Limitations: no limitations - History of Present Illness Initial comments: Patient is a 22-year-old female with no significant past medical history except for asthma who is currently 11 days and is who presents for vaginal bleeding. States she was discharged home after few days in the hospital. Vaginal delivery. No complications. No history of blood clotting or bleeding disorders. Is not on blood thinners. Was at home today when she began having some abdominal cramping, and at approximately 12 PM began having large amounts of vaginal bleeding. She states she filled the toilet bowl multiple times and also fill the bathtub. They called EMS, who found that the patient was hypotensive with systolic blood pressures in the low 80s. They started 2 large bore 18-gauge IVs, and patient has received a total of 1 L of fluids. Transferred her here for further evaluation. Other than the abdominal cramping, vaginal bleeding, patient has no symptoms. She states she does feel somewhat fatigued. Denies any chest pain, nausea, vomiting. Denies any other source of bleeding. Patient has been both breast and bottle feeding. Presents for further evaluation over concern for vaginal bleeding . Patient initially failed to disclose that she had sexual intercourse yesterday. She no bleeding at that time the bleeding started today. She had a syncopal episode today as well while she was in the bathtub. - Related Data Home Medications Medication Instructions Recorded Confirmed ondansetron HCL [Zofran] 8 mg PO Q8HR PRN 10/24/22 10/24/22 Previous Rx's Medication Instructions Recorded Ibuprofen [Motrin] 600 mg PO Q6HR PRN #60 tab 10/15/22 Allergies Allergy/AdvReac Type Severity Reaction Status Date / Time dexamethasone [From Decadron] Allergy Swelling Verified 10/24/22 16:22 dexamethasone sod phosphate Allergy Swelling Verified 10/24/22 16:22 [From Decadron] dexmethylphenidate HCl Allergy Nausea & Verified 10/24/22 16:22 [From Focalin] Vomiting latex Allergy Rash/Hives Verified 10/24/22 16:22 methylphenidate HCl Allergy Unknown Verified 10/24/22 16:22 [From Concerta] sulfamethoxazole Allergy Unknown Verified 10/24/22 16:22 [From Bactrim] trimethoprim [From Bactrim] Allergy Unknown Verified 10/24/22 16:22 Review of Systems ROS Statement: Those systems with pertinent positive or pertinent negative responses have been documented in the HPI. Review of Systems: CONST: Denies fever EYES: Denies blurry vision ENT: Denies nasal congestion C/V: Denies Chest pain RESP: Denies shortness of breath GI: Endorses lower abdominal pain : Endorses vaginal bleeding SKIN: Denies rash. MSK: Denies joint pain. NEURO: Denies headache ROS Other: All systems not noted in ROS Statement are negative. Past Medical History Past Medical History: Asthma Additional Past Medical History / Comment(s): scoliosis, add, history of patent foramen ovale and arrhythmia-no meds History of Any Multi-Drug Resistant Organisms: MRSA Date of last positivie culture/infection: 2017 MDRO Source:: left hip, leg Past Surgical History: Appendectomy, Ear Surgery, Tonsillectomy Past Anesthesia/Blood Transfusion Reactions: No Reported Reaction Past Psychological History: ADD/ADHD Smoking Status: Former smoker Past Alcohol Use History: Occasional Past Drug Use History: Marijuana (Denies any use since the beginning of ) - Past Family History Mother Family Medical History: No Reported History General Exam - General Exam Comments Initial Comments: General: Appears in no acute distress. HEAD: Normal with no signs of head trauma. EYES: PERRLA, EOMI, conjunctiva normal, no discharge. ENT: Hearing grossly intact, normal oropharynx. RESPIRATORY: Clear breath sounds bilaterally. No wheezes, rales, or rhonchi. C/V: Regular rate and rhythm. S1 and S2 auscultated, no edema, peripheral pul ses 2+ and intact throughout ABD: Abdomen is soft, nondistended. Mildly tender to palpation in the suprapubic region. EXT: Normal range of motion, no obvious deformity SKIN: No rashes or lesions observed on exposed skin. NEURO: Alert and oriented 4. Limitations: no limitations Course Vital Signs 10/24/22 10/24/22 10/24/22 14:14 14:26 14:46 Temperature 98 F Pulse Rate 109 H 103 H 99 Respiratory 18 12 16 Rate Blood Pressure 87/68 109/61 109/67 O2 Sat by Pulse 99 100 101 H Oximetry 10/24/22 10/24/22 10/24/22 14:48 14:50 14:55 Temperature Pulse Rate 103 H 105 H 94 Respiratory 21 17 12 Rate Blood Pressure 117/67 101/67 97/67 O2 Sat by Pulse 100 100 Oximetry 10/24/22 10/24/22 10/24/22 15:03 15:21 15:34 Temperature 98.4 F Pulse Rate 87 92 107 H Respiratory 14 16 12 Rate Blood Pressure 102/68 90/68 93/81 O2 Sat by Pulse 99 99 100 Oximetry 10/24/22 10/24/22 10/24/22 15:47 16:08 16:43 Temperature Pulse Rate 109 H 95 85 Respiratory 14 16 12 Rate Blood Pressure 113/68 96/67 112/63 O2 Sat by Pulse 100 98 99 Oximetry Medical Decision Making - Medical Decision Making Based on the patient's presentation and physical exam, I'm concerned for a hemorrhage. She is 11 days . No history of clotting disorders. She did have sexual intercourse yesterday. She did have a repaired right periurethral laceration during delivery. Bleeding started today. She did have a syncopal episode at home. No longer feels lightheaded. Blood pressures are hypotensive with systolics in the low to mid 80s. She does have 2 L of fluid going from EMS. Systolics from EMS were also low in the low 80s. Due to this, and accommodation the syncopal episode, her adult brief containing clots as well as blood, and multiple episodes of bleeding from her vagina at home I did activate massive transfusion protocol. She already has 2 large-bore 18- gauge IVs. We will obtain laboratory studies, she will be given 1 g of TXA and she will receive fentanyl for pain control. She was in agreement with this plan. I was able to contact Dr. Almanzar him of the patient's SECURITY INSPECTOR shortly after the patient arrived. She was in agreement with the workup, and requested I perform a pelvic exam and looked for any obvious source of bleeding which I believe is reasonable. We also obtained an ultrasound of the pelvis to evaluate the uterus for any retained products of conception. I remaining contact Dr. Almanzar regarding my findings. On reevaluation at this time, patient's blood pressure has improved with systolics in the 100s. We will continue with current plan. I did discuss with her obtaining a pelvic exam and she was in agreement with this plan. Pelvic: Pelvic exam was performed in the presence of a female staff member. External genitalia and vaginal mucosa was without obvious lesion , with sutures in place from prior periurethral repair.. Cervix without obvious erythema or ulceration. External cervical os appears closed, possible bleeding. Bimanual exam revealed no tenderness to the adnexa bilaterally and no obvious cervical motion tenderness. large amount of blood clots present as well as gross blood. Multiple clots were evacuated, but was soaked up with herrera swab, and I was unable to visualize well the meza of the vagina or the cervix. No obvious source of bleeding. I do still have concern for uterine bleeding and possible retained products. Ultrasound will be obtained. I did call Dr. Almanzar and updated her on my pelvic exam findings. She agreed to come perform her own pelvic exam at bedside. Ultrasound was obtained in the Dr. Almanzar presented at bedside. Results did show retained products of conception in the uterus. I presented at bedside to update Dr. Almanzar who had just completed her pelvic exam. She expressed understanding. Dr. Almanzar did order the patient Methergine and requested that I order a Pitocin drip as well as start the patient on antibiotics for endometritis. Unasyn was ordered. Patient will be admitted. She'll be kept nothing by mouth at this time for possible D&C. Patient will be admitted under Dr. Almanzar in serious condition. Patient was updated and she was in agreement this plan. Patient's laboratories studies were remarkable for mild leukocytosis of 15.6. Hemoglobin is 13.9 but I do suspect that this is artificially elevated at this time as the patient has had massive hemorrhage. Lactic acid is within normal limits. Remainder of the workup is unremarkable including normal coags. Urine studies are still pending. MTP was stopped after the patient received 2 units of packed red blood cells, 1 unit of platelets, 2 units of plasma. This was done in concordance with Dr. Almanzar's request. Repeat CBC was ordered for 6 PM, midnight, 6 AM. We will continue to monitor the patient's vital signs and bleeding. - Lab Data Result diagrams: 10/24/22 18:31 10/24/22 14:20 Lab Results 10/24/22 10/24/22 10/24/22 Range/Units 14:20 14:20 14:20 WBC 15.6 H (3.8-10.6) k/uL RBC 4.30 (3.80-5.40) m/uL Hgb 13.9 (11.4-16.0) gm/dL Hct 40.5 (34.0-46.0) % MCV 94.0 (80.0-100.0) fL MCH 32.3 (25.0-35.0) pg MCHC 34.4 (31.0-37.0) g/dL RDW 11.8 (11.5-15.5) % Plt Count 214 (150-450) k/uL MPV 8.1 Neutrophils % 83 % Lymphocytes % 11 % Monocytes % 4 % Eosinophils % 1 % Basophils % 0 % Neutrophils # 13.0 H (1.3-7.7) k/uL Lymphocytes # 1.7 (1.0-4.8) k/uL Monocytes # 0.6 (0-1.0) k/uL Eosinophils # 0.2 (0-0.7) k/uL Basophils # 0.0 (0-0.2) k/uL PT 12.1 H (9.0-12.0) sec INR 1.1 (<1.2) APTT 24.3 (22.0-30.0) sec Sodium 137 (137-145) mmol/L Potassium 4.2 (3.5-5.1) mmol/L Chloride 107 (98-107) mmol/L Carbon Dioxide 24 (22-30) mmol/L Anion Gap 6 mmol/L BUN 16 (7-17) mg/dL Creatinine 0.79 (0.52-1.04) mg/dL Est GFR (CKD-EPI)AfAm >90 (>60 ml/min/1.73 sqM) Est GFR (CKD-EPI)NonAf >90 (>60 ml/min/1.73 sqM) Glucose 88 (74-99) mg/dL Plasma Lactic Acid Alexys (0.7-2.0) mmol/L Calcium 8.3 L (8.4-10.2) mg/dL Total Bilirubin 0.4 (0.2-1.3) mg/dL AST 15 (14-36) U/L ALT 11 (4-34) U/L Alkaline Phosphatase 68 (38-126) U/L Total Protein 5.9 L (6.3-8.2) g/dL Albumin 3.4 L (3.5-5.0) g/dL Amylase 55 (30-110) U/L Lipase 38 (23-300) U/L Blood Type Blood Type Recheck Bld Type Recheck Status Antibody Screen Crossmatch Transfuse Plasma Transfuse Platelets Spec Expiration Date 10/24/22 10/24/22 Range/Units 14:20 14:20 WBC (3.8-10.6) k/uL RBC (3.80-5.40) m/uL Hgb (11.4-16.0) gm/dL Hct (34.0-46.0) % MCV (80.0-100.0) fL MCH (25.0-35.0) pg MCHC (31.0-37.0) g/dL RDW (11.5-15.5) % Plt Count (150-450) k/uL MPV Neutrophils % % Lymphocytes % % Monocytes % % Eosinophils % % Basophils % % Neutrophils # (1.3-7.7) k/uL Lymphocytes # (1.0-4.8) k/uL Monocytes # (0-1.0) k/uL Eosinophils # (0-0.7) k/uL Basophils # (0-0.2) k/uL PT (9.0-12.0) sec INR (<1.2) APTT (22.0-30.0) sec Sodium (137-145) mmol/L Potassium (3.5-5.1) mmol/L Chloride (98-107) mmol/L Carbon Dioxide (22-30) mmol/L Anion Gap mmol/L BUN (7-17) mg/dL Creatinine (0.52-1.04) mg/dL Est GFR (CKD-EPI)AfAm (>60 ml/min/1.73 sqM) Est GFR (CKD-EPI)NonAf (>60 ml/min/1.73 sqM) Glucose (74-99) mg/dL Plasma Lactic Acid Alexys 1.1 (0.7-2.0) mmol/L Calcium (8.4-10.2) mg/dL Total Bilirubin (0.2-1.3) mg/dL AST (14-36) U/L ALT (4-34) U/L Alkaline Phosphatase (38-126) U/L Total Protein (6.3-8.2) g/dL Albumin (3.5-5.0) g/dL Amylase (30-110) U/L Lipase (23-300) U/L Blood Type A Positive Blood Type Recheck A Pos Bld Type Recheck Status No Antibody Screen NEGATIVE Crossmatch See Detail Transfuse Plasma 10/24/22 Transfuse Platelets 10/24/22 Spec Expiration Date 10/27/20222319 Critical Care Time Critical Care Time: Yes Total Critical Care Time: 35 Critical Care Time: Upon my evaluation, this patient had a high probability of imminent or life- threatening deterioration due to hemorrhage, which required my direct attention, intervention, and personal management. I have personally provided 35 minutes of critical care time exclusive of time spent on separately billable procedures. Time includes review of laboratory data, radiology results, discussion with consultants, and monitoring for potential decompensation. Interventions were performed as documented in my note. Disposition Clinical Impression: hemorrhage, Retained products of conception Disposition: ADMITTED IP TO THIS [facility] Condition: Serious Time of Disposition: 15:55
[2022-10-24 14:38] LABS: INR 1.1 (<1.2); Partial Thromboplastin Time 24.3 sec (22.0-30.0); Prothrombin Time 12.1 sec (9.0-12.0)
[2022-10-24 14:40] LABS: Basophils % (A) 0 %; Eosinophils # (A) 0.2 k/uL (0-0.7); Eosinophils % (A) 1 %; HCT 40.5 % (34.0-46.0); HGB 13.9 gm/dL (11.4-16.0); Lymphocytes # (A) 1.7 k/uL (1.0-4.8); Lymphocytes % (A) 11 %; MCH 32.3 pg (25.0-35.0); MCHC 34.4 g/dL (31.0-37.0); Mean Platelet Volume 8.1; Monocytes # (A) 0.6 k/uL (0-1.0); Monocytes % (A) 4 %; Neutrophils % (A) 83 %; Platelet Count 214 k/uL (150-450); RDW 11.8 % (11.5-15.5); WBC 15.6 k/uL (3.8-10.6)
[2022-10-24] MEDS: TRANEXAMIC ACID IN NACL,ISO-OS 1,000 MG in EMPTY BAG 1 BAG IV PRN ×2 (14:44→15:01)
[2022-10-24 15:09] LABS: ALT 11 U/L (4-34); AST 15 U/L (14-36); African American GFR (CKD) >90 (>60 ml/min/1.73 sqM); Albumin 3.4 g/dL (3.5-5.0); Alkaline Phosphatase 68 U/L (38-126); Amylase 55 U/L (30-110); Anion Gap 6 mmol/L; Blood Urea Nitrogen 16 mg/dL (7-17); Calcium 8.3 mg/dL (8.4-10.2); Carbon Dioxide 24 mmol/L (22-30); Chloride 107 mmol/L (98-107); Glucose 88 mg/dL (74-99); Lipase 38 U/L (23-300); Non-African American GFR(CKD) >90 (>60 ml/min/1.73 sqM); Potassium 4.2 mmol/L (3.5-5.1); Sodium 137 mmol/L (137-145); Total Bilirubin 0.4 mg/dL (0.2-1.3); Total Protein 5.9 g/dL (6.3-8.2)
--- NOTE | 2022-10-24 15:49 | US ---
EXAMINATION TYPE: US pelvic complete DATE OF EXAM: 10/24/2022 COMPARISON: NONE CLINICAL HISTORY: eval for retained products. Vaginal delivery x 11 days ago. Very heavy bleeding. TECHNIQUE: Transabdominal (TA). Transabdominal sonographic images of the pelvis were acquired. Date of LMP: Unknown EXAM MEASUREMENTS: Uterus: 16.8 cm Endometrial Stripe: 6.8 cm Left Ovary: 2.7 x 1.6 x 1.2 cm 1. Uterus: Anteverted Heterogenous. Enlarged. 2. Endometrium: Very thickened, heterogenous, clots vs hemorrhage. 3. Right Ovary: Obscured by overlying bowel gas 4. Left Ovary: wnl 5. Bilateral Adnexa: wnl 6. Posterior cul-de-sac: No free fluid 7. Cervix- Appears enlarged IMPRESSION: Markedly thickened endometrium which is heterogenous likely reflecting underlying hemorrhage and/or b lood clots. Retained products of conception difficult to exclude.
[2022-10-24] MEDS ORDERED: METHYLERGONOVINE 0.2 MG/ML 1 ML AMP IM ONE (16:00)
[2022-10-24] MEDS ORDERED: OXYTOCIN 30 UNITS/500 ML NS 30 UNIT in SALINE 1 500ML.BAG IV SCH (16:00)
[2022-10-24] MEDS ORDERED: MORPHINE SULFATE 2 MG/ML SYRINGE IV PRN (16:03)
[2022-10-24] MEDS ORDERED: NALOXONE 0.4 MG/ML 1 ML VIAL IV PRN (16:03)
[2022-10-24] MEDS ORDERED: AMPICILLIN-SULBACTAM 3 GM in SODIUM CHLORIDE 0.9% 100 ML IVPB STA (16:10)
--- NOTE | 2022-10-24 17:25 | P.HPOB ---
History of Present Illness H&P Date: 10/24/22 Chief Complaint: hemorrhage This is a 22-year-old female 2 para 2 who delivered vaginally on 10/13/2022. She states at about noon time today she started feeling cramping and then started gushing with large clots and heavy bleeding. She got in the bathtub and did have a syncopal episode while she was in the bathtub. She states the clots just Running out of her. Apparently she 1 other episode of syncope prior to that time. She did have intercourse last night but had no bleeding or pain with intercourse. Her bleeding had stopped from the delivery about 3 days ago. In ER, massive transfusion protocol was started. She was given 1 g of TX a along with 2 units of packed red blood cells, 1 unit of platelets, and 2 units of plasma. Pelvic ultrasound was performed and showed a very enlarged uterus at about 16 weeks size with a large amount of blood clot with the endometrial stripe of about 7 cm. Adnexal areas appeared normal. OB history: . History of 2 vaginal deliveries. Review of Systems Constitutional: Reports weakness, Denies chills, Denies fever Eyes: denies blurred vision, denies pain Ears, nose, mouth and throat: Denies headache, Denies sore throat Cardiovascular: Denies chest pain, Denies shortness of breath Respiratory: Denies cough Gastrointestinal: Reports abdominal pain (Lower abdominal cramping) Genitourinary: Reports abnormal vaginal bleeding, Reports pelvic pain, Denies Musculoskeletal: Denies myalgias Integumentary: Denies pruritus, Denies rash Neurological: Reports numbness (Extremities), Reports syncope, Reports weakness Psychiatric: Denies anxiety, Denies depression Past Medical History Past Medical History: Asthma Additional Past Medical History / Comment(s): scoliosis, add, history of patent foramen ovale and arrhythmia-no meds History of Any Multi-Drug Resistant Organisms: MRSA Date of last positivie culture/infection: 2017 MDRO Source:: left hip, leg Past Surgical History: Appendectomy, Ear Surgery, Tonsillectomy Past Anesthesia/Blood Transfusion Reactions: No Reported Reaction Past Psychological History: ADD/ADHD Smoking Status: Former smoker Past Alcohol Use History: Occasional Past Drug Use History: Marijuana (Denies any use since the beginning of ) - Past Family History Mother Family Medical History: No Reported History Medications and Allergies Home Medications Medication Instructions Recorded Confirmed Type Ibuprofen [Motrin] 600 mg PO Q6HR PRN #60 tab 10/15/22 10/24/22 Rx ondansetron HCL [Zofran] 8 mg PO Q8HR PRN 10/24/22 10/24/22 History Allergies Allergy/AdvReac Type Severity Reaction Status Date / Time dexamethasone [From Decadron] Allergy Swelling Verified 10/24/22 16:22 dexamethasone sod phosphate Allergy Swelling Verified 10/24/22 16:22 [From Decadron] dexmethylphenidate HCl Allergy Nausea & Verified 10/24/22 16:22 [From Focalin] Vomiting latex Allergy Rash/Hives Verified 10/24/22 16:22 methylphenidate HCl Allergy Unknown Verified 10/24/22 16:22 [From Concerta] sulfamethoxazole Allergy Unknown Verified 10/24/22 16:22 [From Bactrim] trimethoprim [From Bactrim] Allergy Unknown Verified 10/24/22 16:22 Exam Osteopathic Statement: *. No significant issues noted on an osteopathic structural exam other than those noted in the History and Physical/Consult. Vital Signs Temp Pulse Resp BP Pulse Ox 10/24/22 16:43 85 12 112/63 99 10/24/22 16:08 95 16 96/67 98 10/24/22 15:47 109 H 14 113/68 100 10/24/22 15:34 107 H 12 93/81 100 10/24/22 15:21 92 16 90/68 99 10/24/22 15:03 98.4 F 87 14 102/68 99 10/24/22 14:55 94 12 97/67 100 10/24/22 14:50 105 H 17 101/67 10/24/22 14:48 103 H 21 117/67 100 10/24/22 14:46 99 16 109/67 101 H 10/24/22 14:26 103 H 12 109/61 100 10/24/22 14:14 98 F 109 H 18 87/68 99 Intake and Output 10/24/22 10/24/22 10/24/22 06:59 14:59 22:59 Intake Total 581 983 Balance 581 983 Intake: Blood Product 581 983 Ffp 24 Cpd Unit 316 [id number] Ffp 24 Cpd Unit 324 [id number] Platelet Pheresis Pas 343 Psoralen Unit [id number] Rc As-1 Unit 310 [id number] Rc Pheresis As-3 Unit 271 [id number] Other: Weight 65.771 kg Gen.: Thin, pale appearing female with some discomfort HEENT: Within normal limits Heart: Regular rate and rhythm with slight tachycardia Lungs: Clear to auscultation bilaterally Abdomen: Soft, mild tenderness over her pelvic region. Pelvic exam: Uterus is enlarged, mildly tender with cervical os noted to be open 2-3 cm a large on a blood clot is noted in the vagina vault and with uterine pal pation more blood clots were expressed. Approximate 5-600 mL worth of blood clots were expressed from the uterine cavity with massage of the uterus and bimanual exam. A Reinoso catheter was inserted to drain her bladder. Once most of the clots were removed from the uterus I was able to palpate a small firm nodular area less than 1 cm and was able to remove this with a gloved hand. A few other pieces of placental versus decidual type tissue were removed. Methergine was given IM shortly after removal of the blood clot and tissue. Bleeding did slow and her pain did improve. Extremities show negative Homans Results Result Diagrams: 10/24/22 14:20 10/24/22 14:20 Abnormal Lab Results - Last 24 Hours (Table) 10/24/22 10/24/22 10/24/22 Range/Units 14:20 14:20 14:20 WBC 15.6 H (3.8-10.6) k/uL Neutrophils # 13.0 H (1.3-7.7) k/uL PT 12.1 H (9.0-12.0) sec Calcium 8.3 L (8.4-10.2) mg/dL Total Protein 5.9 L (6.3-8.2) g/dL Albumin 3.4 L (3.5-5.0) g/dL Crossmatch 10/24/22 Range/Units 14:20 WBC (3.8-10.6) k/uL Neutrophils # (1.3-7.7) k/uL PT (9.0-12.0) sec Calcium (8.4-10.2) mg/dL Total Protein (6.3-8.2) g/dL Albumin (3.5-5.0) g/dL Crossmatch See Detail Assessment and Plan (1) hemorrhage Current Visit: Yes Status: Acute Code(s): O72.1 - OTHER IMMEDIATE HEMORRHAGE SNOMED Code(s): 92727014 (2) Retained products of conception, Current Visit: Yes Status: Acute Code(s): O72.0 - THIRD-STAGE HEMORRHAGE SNOMED Code(s): 1324012731 Plan: Will admit for observation. We'll continue oxytocin as per normal recovery protocol. We'll continue to monitor her bleeding. If she is stable over the next couple hours, she may eat and Reinoso catheter may be removed. She is advised to have assistance when she does go to the restroom. Will follow serial CBCs.
[2022-10-24] MEDS ORDERED: diphenhydrAMINE 50 MG/ML 1 ML VIAL IVP PRN ×2 (17:26)
[2022-10-24] MEDS ORDERED: IBUPROFEN 600 MG TAB PO PRN (17:26)
[2022-10-24] MEDS ORDERED: LANOLIN CREAM 5 GM TUBE TOPICAL PRN (17:26)
[2022-10-24] MEDS ORDERED: diphenhydrAMINE 25 MG CAP PO PRN (17:26)
[2022-10-24] MEDS ORDERED: diphenhydrAMINE 50 MG CAP PO PRN (17:26)
[2022-10-24] MEDS ORDERED: SIMETHICONE 80 MG CHEWABLE PO PRN (17:26)
[2022-10-24] MEDS: ACETAMINOPHEN TAB 325 MG TAB PO PRN ×2 (17:59→23:51)
[2022-10-24 19:06] LABS: Basophils % (A) 0 %; Eosinophils # (A) 0.1 k/uL (0-0.7); Eosinophils % (A) 0 %; HCT 35.5 % (34.0-46.0); HGB 12.2 gm/dL (11.4-16.0); Lymphocytes # (A) 1.6 k/uL (1.0-4.8); Lymphocytes % (A) 9 %; MCH 31.9 pg (25.0-35.0); MCHC 34.4 g/dL (31.0-37.0); MCV 92.7 fL (80.0-100.0); Mean Platelet Volume 8.5; Monocytes # (A) 0.6 k/uL (0-1.0); Monocytes % (A) 3 %; Neutrophils # (A) 14.3 k/uL (1.3-7.7); Neutrophils % (A) 86 %; Platelet Count 174 k/uL (150-450); RBC 3.83 m/uL (3.80-5.40); RDW 12.9 % (11.5-15.5); WBC 16.7 k/uL (3.8-10.6)
[2022-10-24] MEDS: AMPICILLIN-SULBACTAM 3 GM in SODIUM CHLORIDE 0.9% 100 ML IVPB SCH (23:11)
[2022-10-25 00:18] LABS: Basophils % (A) 0 %; Eosinophils # (A) 0.1 k/uL (0-0.7); Eosinophils % (A) 1 %; HCT 30.3 % (34.0-46.0); HGB 10.5 gm/dL (11.4-16.0); Lymphocytes % (A) 19 %; MCH 31.8 pg (25.0-35.0); MCHC 34.8 g/dL (31.0-37.0); MCV 91.3 fL (80.0-100.0); Mean Platelet Volume 9.6; Monocytes # (A) 0.5 k/uL (0-1.0); Monocytes % (A) 5 %; Neutrophils # (A) 7.5 k/uL (1.3-7.7); Neutrophils % (A) 73 %; Platelet Count 173 k/uL (150-450); RBC 3.31 m/uL (3.80-5.40); WBC 10.3 k/uL (3.8-10.6)
[2022-10-25] MEDS: AMPICILLIN-SULBACTAM 3 GM in SODIUM CHLORIDE 0.9% 100 ML IVPB SCH (05:06)
[2022-10-25 07:53] LABS: Basophils % (A) 0 %; Eosinophils # (A) 0.2 k/uL (0-0.7); Eosinophils % (A) 3 %; HCT 29.1 % (34.0-46.0); HGB 9.9 gm/dL (11.4-16.0); Lymphocytes # (A) 1.6 k/uL (1.0-4.8); Lymphocytes % (A) 26 %; MCH 31.3 pg (25.0-35.0); MCHC 34.1 g/dL (31.0-37.0); MCV 91.7 fL (80.0-100.0); Mean Platelet Volume 8.7; Monocytes # (A) 0.4 k/uL (0-1.0); Monocytes % (A) 6 %; Neutrophils # (A) 3.8 k/uL (1.3-7.7); Neutrophils % (A) 62 %; Platelet Count 177 k/uL (150-450); RBC 3.17 m/uL (3.80-5.40); RDW 13.1 % (11.5-15.5); WBC 6.1 k/uL (3.8-10.6)
[2022-10-25 07:59] VITALS: BP 95/54; PULSE 90; RESP 14; TEMP 98.4
[2022-10-25 08:05] LABS: African American GFR (CKD) >90 (>60 ml/min/1.73 sqM); Anion Gap 3 mmol/L; Blood Urea Nitrogen 13 mg/dL (7-17); Calcium 8.2 mg/dL (8.4-10.2); Carbon Dioxide 26 mmol/L (22-30); Chloride 108 mmol/L (98-107); Glucose 89 mg/dL (74-99); Non-African American GFR(CKD) >90 (>60 ml/min/1.73 sqM); Potassium 4.1 mmol/L (3.5-5.1); Sodium 137 mmol/L (137-145)
--- NOTE | 2022-10-25 09:40 | P.DS ---
Providers Date of admission: 10/24/22 16:04 Expected date of discharge: 10/25/22 Attending physician: Orquidea Almanzar Primary care physician: Stated None - Discharge Diagnosis(es) (1) hemorrhage Current Visit: Yes Status: Acute (2) Retained products of conception, Current Visit: Yes Status: Acute Hospital Course: This is a 22-year-old female 2 para 2 who presented to ER with heavy vaginal bleeding 11 days . Massive transfusion protocol was instit uted and she was given 2 units of packed red blood cells along with plasma and platelets. Ultrasound was performed and showed a very enlarged uterus with significant amount of blood clot within the endometrium. I was able to evacuate the blood clot manually in the ER. I did palpate a small nodule that felt like possibly a small piece of placenta and I removed this. She was given Methergine and then oxytocin. Her bleeding did subside significantly. She was observed overnight and has had minimal further bleeding and no clotting. Her hemoglobin did stabilize this morning at 9.9. She denies any dizziness or lightheadedness. She has minimal cramping at this time. Impression is hemorrhage, blood loss anemia. Plan is to discharge home today. She will continue her vitamins and iron supplementation at home. She is advised no intercourse until she is cleared by me. She is advised to follow up in the office in approximately 1 week for a postoperative check. She is advised to return to the hospital or call immediately if she starts having heavy bleeding again or if she has any signs of fever, significant pain, or signs of infection. Patient Condition at Discharge: Stable Plan - Discharge Summary New Discharge Prescriptions: No Action Ibuprofen [Motrin] 600 mg PO Q6HR PRN #60 tab PRN Reason: Mild Pain (Scale 1 To 3) ondansetron HCL [Zofran] 8 mg PO Q8HR PRN PRN Reason: Nausea And Vomiting Discharge Medication List Ibuprofen [Motrin] 600 mg PO Q6HR PRN #60 tab 10/15/22 [Rx] ondansetron HCL [Zofran] 8 mg PO Q8HR PRN 10/24/22 [History] Follow up Appointment(s)/Referral(s): None,Stated [Primary Care Provider] - 1-2 days Orquidea Almanzar DO [Doctor of Osteopathic Medicine] - 1 Week Patient Instructions/Handouts: Bleeding (DC) Discharge Disposition: HOME SELF-CARE
[2022-10-25] MEDS: ACETAMINOPHEN TAB 325 MG TAB PO PRN (09:46)
== END 2022-10-25 10:09 | disposition home or self-care (01) ==
LOC: EC 14:10 → 4FBP 16:04 → INTOOBSV 16:04 → UNDODISIN 10-25 10:09
PROVIDERS: ADMIT Obstetrics & Gynecology; ATTEND Obstetrics & Gynecology
DX: O72.2 Delayed and secondary postpartum hemorrhage (principal); O90.81 Anemia of the puerperium; D50.0 Iron deficiency anemia secondary to blood loss (chronic); O99.53 Diseases of the respiratory system complicating the puerperium; J45.909 Unspecified asthma, uncomplicated; O99.345 Other mental disorders complicating the puerperium; F90.9 Attention-deficit hyperactivity disorder, unspecified type; Z87.891 Personal history of nicotine dependence; Z88.2 Allergy status to sulfonamides; Z91.040 Latex allergy status
CPT/HCPCS: 96365; 96366 ×2; 96367; 96372; 96374; 96375; 99285; 99291; 36415; 86900; 86901; 80053; 80048; 82150; 83605; 83690; 85025 ×2; 85610; 85730; 86850; 86920; 76856; 36430; G0378 ×2; P9016; P9059; P9073; J2210; J3010; J0295 ×2; J2590; 88305

== ENCOUNTER 2024-03-15 14:45 | Observation (INO) | payer OTHER ==
--- NOTE | 2024-03-15 15:13 | CT ---
EXAMINATION TYPE: CT brain wo con CT DLP: 1161 mGycm, Automated exposure control for dose reduction was used. DATE OF EXAM: 03/15/2024 3:04 PM COMPARISON: CT head 08/13/2021. CLINICAL INDICATION:Female, 23 years old with history of Neuro deficit, acute, stroke suspected, Neur o deficit, left side weakness TECHNIQUE: Brain: Axial CT images of the brain were obtained with coronal and sagittal reformats created and rev iewed. Contrast used: None. Oral contrast used: None. FINDINGS: Brain: Extra-axial spaces: No abnormal extra-axial fluid collections. Ventricular system: Within normal limits Cerebral parenchyma: No acute intraparenchymal hemorrhage or mass effect. The kevin-white junction is well differentiated. Cerebellum: Unremarkable. Mass effect: No evidence of midline shift. Intracranial vasculature: unremarkable Soft tissues: Normal. Calvarium/osseous structures: No depressed skull fracture. Paranasal sinuses and mastoid air cells: Mild scattered paranasal sinus disease. Visualized orbits: Orbital contents are intact. IMPRESSION: No acute intracranial process.
[2024-03-15] MEDS: SODIUM CHLORIDE 0.9% 1,000 ML IV ONE (15:27)
--- NOTE | 2024-03-15 15:34 | CT ---
EXAMINATION TYPE: CT angio head neck CT DLP: 390.7 mGycm, Automated exposure control for dose reduction was used. DATE OF EXAM: 03/15/2024 3:25 PM COMPARISON: CT angiogram 08/13/2021. CLINICAL INDICATION:Female, 23 years old with history of Neuro deficit, acute, stroke suspected; PHH, Neuro deficit. left side weakness TECHNIQUE: Axially acquired helical CT angiogram of the head and neck was obtained with contrast. Axi al images are supplemented with 3D reconstructions [facility] NASCET criteria used. Contrast used:65ml mL of Isovue 370 with IV Contrast, Oral contrast used: None. FINDINGS: CTA HEAD: The visualized portions of the internal carotid arteries, middle cerebral arteries, anterior cerebral arteries, and posterior cerebral arteries are patent. Posterior communicating arteries are patent. The basilar and vertebral arteries are patent. CTA NECK: Right Carotid System: The common carotid artery and external carotid artery are patent. The carotid bifurcation demonstrate s no evidence of hemodynamically significant stenosis. The remaining portions of the internal carotid artery demonstrate normal size without significant narrowing. Left Carotid System: The common carotid artery and external carotid artery are patent. The carotid bifurcation demonstrate s no evidence of hemodynamically significant stenosis. The remaining portions of the internal carotid artery demonstrate normal size without significant narrowing. Vertebral arteries are patent without evidence hemodynamically significant stenosis. There is a three-vessel aortic arch. The origins of the great vessels are patent. No evidence of hemo dynamically significant stenosis. Upper thorax: Unremarkable. IMPRESSION: 1. No evidence of dissection of the cervical internal carotid arteries or vertebral arteries or any e vidence of significant stenosis at the carotid bifurcations. 2. No evidence of intracranial high-grade stenosis or intracranial aneurysm.
[2024-03-15 15:44] LABS: Basophils % (A) 0 %; Eosinophils # (A) 0.1 k/uL (0-0.7); Eosinophils % (A) 1 %; HCT 38.9 % (34.0-46.0); HGB 13.2 gm/dL (11.4-16.0); Lymphocytes # (A) 1.1 k/uL (1.0-4.8); Lymphocytes % (A) 23 %; MCHC 34.1 g/dL (31.0-37.0); MCV 93.8 fL (80.0-100.0); Mean Platelet Volume 8.8; Monocytes # (A) 0.3 k/uL (0-1.0); Monocytes % (A) 6 %; Neutrophils # (A) 3.3 k/uL (1.3-7.7); Neutrophils % (A) 68 %; Platelet Count 169 k/uL (150-450); RBC 4.14 m/uL (3.80-5.40); RDW 11.6 % (11.5-15.5); WBC 4.9 k/uL (3.8-10.6)
--- NOTE | 2024-03-15 15:44 | ED ---
General Adult HPI - General Chief complaint: Neuro Symptoms/Deficit Stated complaint: cva symp Time Seen by Provider: 03/15/24 14:48 Source: patient, EMS, RN notes reviewed, old records reviewed Mode of arrival: EMS Limitations: no limitations - History of Present Illness Initial comments: 23-year-old female who is approximately 8 weeks presenting with headache, left facial droop, left arm and leg weakness. Symptoms began at 10 AM when the patient woke. She had gone to bed around 10 PM. She presents at approximately 2:45 in the afternoon. Patient had similar symptoms although not nearly as severe with previous migraine headache. According to the patient and her mother she also was diagnosed with "a hole in her heart". There was concern in the past that she did have a CVA. I discussed the presentation with both the patient and her mother at length regarding the risks and benefits of imaging early in . Both the patient and her mother would like to proceed with imaging knowing the risks to the fetus. - Related Data Home Medications Medication Instructions Recorded Confirmed ondansetron HCL [Zofran] 8 mg PO Q8HR PRN 10/24/22 10/24/22 Previous Rx's Medication Instructions Recorded Ibuprofen [Motrin] 600 mg PO Q6HR PRN #60 tab 10/15/22 Allergies Allergy/AdvReac Type Severity Reaction Status Date / Time dexamethasone [From Decadron] Allergy Swelling Verified 03/15/24 15:19 dexamethasone sod phosphate Allergy Swelling Verified 03/15/24 15:19 [From Decadron] dexmethylphenidate HCl Allergy Nausea & Verified 03/15/24 15:19 [From Focalin] Vomiting latex Allergy Rash/Hives Verified 03/15/24 15:19 methylphenidate HCl Allergy Unknown Verified 03/15/24 15:19 [From Concerta] sulfamethoxazole Allergy Unknown Verified 03/15/24 15:19 [From Bactrim] trimethoprim [From Bactrim] Allergy Unknown Verified 03/15/24 15:19 Review of Systems ROS Statement: Those systems with pertinent positive or pertinent negative responses have been documented in the HPI. ROS Other: All systems not noted in ROS Statement are negative. Past Medical History Past Medical History: Asthma Additional Past Medical History / Comment(s): scoliosis, add, history of patent foramen ovale and arrhythmia-no meds History of Any Multi-Drug Resistant Organisms: MRSA Date of last positivie culture/infection: 2017 MDRO Source:: left hip, leg Past Surgical History: Appendectomy, Ear Surgery, Tonsillectomy Past Anesthesia/Blood Transfusion Reactions: No Reported Reaction Past Psychological History: ADD/ADHD Smoking Status: Former smoker Past Alcohol Use History: Occasional Past Drug Use History: Marijuana - Past Family History Mother Family Medical History: No Reported History General Exam Limitations: no limitations General appearance: alert, in no apparent distress Head exam: Present: atraumatic, normocephalic Eye exam: Present: normal appearance, PERRL ENT exam: Present: normal exam Neck exam: Present: normal inspection Respiratory exam: Present: normal lung sounds bilaterally. Absent: respiratory distress, wheezes Cardiovascular Exam: Present: regular rate, normal rhythm GI/Abdominal exam: Present: soft. Absent: distended, tenderness Extremities exam: Present: normal inspection, normal capillary refill Neurological exam: Present: alert, motor sensory deficit (Left-sided facial droop, dysarthria, left arm drift, left leg weakness, initial NIH of 6) Psychiatric exam: Present: normal affect, normal mood Skin exam: Present: warm, dry, intact Course Vital Signs 03/15/24 03/15/24 03/15/24 15:12 16:46 18:56 Temperature 98.6 F Pulse Rate 82 89 67 Respiratory 18 18 18 Rate Blood Pressure 110/66 107/67 98/52 O2 Sat by Pulse 100 100 100 Oximetry - Reevaluation(s) Reevaluation #1: 03/15/24 15:[address] Oliveira covering stroke intervention, CT CT angiography pending. Patient not a thrombolytic candidate secondary to onset 1505 I was able to discuss the risks of CT radiation on the fetus with this patient. She was informed of the long-term risk prior to CT. The patient did want her mother involved in the decision-making. Her mother was contacted and on speaker phone we discussed the risks together. Mother and patient agree with CT imaging. [place] that the risks are outweighed by the benefits in this presentation concerning for stroke. Medical Decision Making - Medical Decision Making Was pt. sent in by a medical professional or institution (, PA, FOOD ADVISER, urgent care, hospital, or alf...) When possible be specific @ -No Did you speak to anyone other than the patient for history (EMS, parent, family, police, friend...)? What history was obtained from this source @ -No Did you review nursing and triage notes (agree or disagree)? Why? @ -I reviewed and agree with nursing and triage notes Were old charts reviewed (outside hosp., previous admission, EMS record, old EKG, old radiological studies, urgent care reports/EKG's, alf records)? Report findings @ -No old charts were reviewed Differential Diagnosis differential CVA Ischemic stroke, hemorrhagic stroke, brain tumor, atypical migraine, Wernicke's encephalopathy, seizure, multiple sclerosis, meningitis, encephalitis, hypoglycemia, Guillain-Jacome, electrolytes disturbance, myasthenia gravis.... This is not meant to be an all-inclusive list EKG interpreted by me (3pts min.). @ -EKG: Sinus rhythm rate of 75, DC interval 144, QRS duration 89, QTc [address] segment elevation. X-rays interpreted by me (1pt min.). @ -None done CT interpreted by me (1pt min.). @ -[CT brain negative for intracranial hemorrhage or mass effect, CT angiogr aphy negative for acute stenosis or occlusion, no aneurysmal change. U/S interpreted by me (1pt. min.). @ -Ultrasound showing single live intrauterine What testing was considered but not performed or refused? (CT, X-rays, U/S, labs)? Why? @ -[None What meds were considered but not given or refused? Why? @ -None Did you discuss the management of the patient with other professionals (pr ofessionals i.e. , PA, FOOD ADVISER, lab, RT, psych nurse, rn social services, vice president talent management, teacher, tactical/mobile watch officer, child support case officer)? Give summary @ -No Was smoking cessation discussed for >3mins.? @ -No Was critical care preformed (if so, how long)? @Yes, 35 minutes. Were there social determinants of health that impacted care today? How? (Homelessness, low income, unemployed, alcoholism, drug addiction, transport ation, low edu. Level, literacy, decrease access to med. care, [place] [facility], rehab)? @ -No Was there de-escalation of care discussed even if they declined (Discuss DNR or withdrawal of care, Hospice)? DNR status @ -No What co-morbidities impacted this encounter? (DM, HTN, Smoking, COPD, CAD, Cancer, CVA, ARF, Chemo, Hep., AIDS, mental health diagnosis, sleep apnea, morbid obesity)? @ -Current , history of patent foramen ovale, history of migraine Was patient admitted / discharged? Hospital course, mention meds given and route, prescriptions, significant lab abnormalities, going to OR and other pertinent info. @ -23-year-old female currently approximately 8 weeks presenting for evaluation of left-sided weakness. Patient is a stroke activation upon arrival. She has had symptoms since she woke at 10 AM of left-sided weakness. Initial NIH is 6. She has left facial droop, slurred speech, left arm drift and significant weakness in the left leg. She is not a tPA candidate due to the onset of symptoms being greater than 4 and half hours. The management of this patient was provided with the assistance of Dr. Tee hidalgo for stroke intervention. I had discussed his case with him regarding management, recommends medical management and treatment of migraine. No thrombectomy, no tPA. Patient's symptoms do improve in the emergency department but did not completely resolve. I discussed case with the admitting physician Dr. Langley and with the neurologist covering at this institution Dr. Lopez. I did discuss with pharmacy the safety of aspirin in first trimester. She is administered 325 aspirin while in the emergency department. She will be admitted for further evaluation and treatment. Undiagnosed new problem with uncertain prognosis? @ -No Drug Therapy requiring intensive monitoring for toxicity (Heparin, Nitro, Insulin, Cardizem)? @ -No Were any procedures done? @ -No Diagnosis/symptom? @Left-sided weakness, rule out CVA versus complex migraine. Early . Acute, or Chronic, or Acute on Chronic? @ -[Acute Uncomplicated (without systemic symptoms) or Complicated (systemic symptoms)? @ -Complicated Side effects of treatment? @ -[No Exacerbation, Progression, or Severe Exacerbation? @ -No Poses a threat to life or bodily function? How? (Chest pain, USA, NH, pneumonia, PE, COPD, DKA, ARF, appy, cholecystitis, CVA, Diverticulitis, Homicidal, Suicidal, threat to staff... and all critical care pts) @ -Yes, CVA - Lab Data Result diagrams: 03/15/24 15:21 03/15/24 15:21 Lab Results 03/15/24 03/15/24 03/15/24 Range/Units 15:21 15:21 15:21 WBC 4.9 (3.8-10.6) k/uL RBC 4.14 (3.80-5.40) m/uL Hgb 13.2 (11.4-16.0) gm/dL Hct 38.9 (34.0-46.0) % MCV 93.8 (80.0-100.0) fL MCH 32.0 (25.0-35.0) pg MCHC 34.1 (31.0-37.0) g/dL RDW 11.6 (11.5-15.5) % Plt Count 169 (150-450) k/uL MPV 8.8 Neutrophils % 68 % Lymphocytes % 23 % Monocytes % 6 % Eosinophils % 1 % Basophils % 0 % Neutrophils # 3.3 (1.3-7.7) k/uL Lymphocytes # 1.1 (1.0-4.8) k/uL Monocytes # 0.3 (0-1.0) k/uL Eosinophils # 0.1 (0-0.7) k/uL Basophils # 0.0 (0-0.2) k/uL PT 12.7 H (10.0-12.5) sec INR 1.2 H (<1.2) APTT 26.7 (22.0-30.0) sec Sodium (137-145) mmol/L Potassium (3.5-5.1) mmol/L Chloride (98-107) mmol/L Carbon Dioxide (22-30) mmol/L Anion Gap mmol/L BUN (7-17) mg/dL Creatinine (0.52-1.04) mg/dL Est GFR (CKD-EPI)AfAm (>60 ml/min/1.73 sqM) Est GFR (CKD-EPI)NonAf (>60 ml/min/1.73 sqM) Glucose (74-99) mg/dL POC Glucose (mg/dL) (70-110) mg/dL POC Glu Resolution Specialist ID Calcium (8.4-10.2) mg/dL Total Bilirubin (0.2-1.3) mg/dL AST (14-36) U/L ALT (4-34) U/L Alkaline Phosphatase (38-126) U/L Creatine Kinase (30-135) U/L Troponin I (0.000-0.034) ng/mL Total Protein (6.3-8.2) g/dL Albumin (3.5-5.0) g/dL Urine Color Colorless Urine Appearance Clear (Clear) Urine pH 6.5 (5.0-8.0) Ur Specific [place] >1.050 H (1.001-1.035) Urine Protein Negative (Negative) Urine Glucose (UA) Negative (Negative) Urine Ketones Negative (Negative) Urine Blood Negative (Negative) Urine Nitrite Negative (Negative) Urine Bilirubin Negative (Negative) Urine Urobilinogen <2.0 (<2.0) mg/dL Ur Leukocyte Esterase Small H (Negative) Urine RBC 1 (0-5) /hpf Urine WBC 1 (0-5) /hpf Ur Squamous Epith Cells 7 H (0-4) /hpf Urine HCG, Qual (Not Detectd) Urine Opiates Screen Not Detected (NotDetected) Ur Oxycodone Screen Not Detected (NotDetected) Urine Methadone Screen Not Detected (NotDetected) Ur Barbiturates Screen Not Detected (NotDetected) U Tricyclic Antidepress Not Detected (NotDetected) Ur Phencyclidine Scrn Not Detected (NotDetected) Ur Amphetamines Screen Not Detected (NotDetected) U Methamphetamines Scrn Not Detected (NotDetected) U Benzodiazepines Scrn Not Detected (NotDetected) Urine Cocaine Screen Not Detected (NotDetected) U Marijuana (THC) Screen Detected H (NotDetected) 03/15/24 03/15/24 03/15/24 Range/Units 15:21 15:21 15:21 WBC (3.8-10.6) k/uL RBC (3.80-5.40) m/uL Hgb (11.4-16.0) gm/dL Hct (34.0-46.0) % MCV (80.0-100.0) fL MCH (25.0-35.0) pg MCHC (31.0-37.0) g/dL RDW (11.5-15.5) % Plt Count (150-450) k/uL MPV Neutrophils % % Lymphocytes % % Monocytes % % Eosinophils % % Basophils % % Neutrophils # (1.3-7.7) k/uL Lymphocytes # (1.0-4.8) k/uL Monocytes # (0-1.0) k/uL Eosinophils # (0-0.7) k/uL Basophils # (0-0.2) k/uL PT (10.0-12.5) sec INR (<1.2) APTT (22.0-30.0) sec Sodium 135 L (137-145) mmol/L Potassium 4.2 (3.5-5.1) mmol/L Chloride 105 (98-107) mmol/L Carbon Dioxide 21 L (22-30) mmol/L Anion Gap 9 mmol/L BUN 4 L (7-17) mg/dL Creatinine 0.60 (0.52-1.04) mg/dL Est GFR (CKD-EPI)AfAm >90 (>60 ml/min/1.73 sqM) Est GFR (CKD-EPI)NonAf >90 (>60 ml/min/1.73 sqM) Glucose 83 (74-99) mg/dL POC Glucose (mg/dL) (70-110) mg/dL POC Glu Resolution Specialist ID Calcium 9.1 (8.4-10.2) mg/dL Total Bilirubin 0.3 (0.2-1.3) mg/dL AST 15 (14-36) U/L ALT 8 (4-34) U/L Alkaline Phosphatase 35 L (38-126) U/L Creatine Kinase 34 (30-135) U/L Troponin I <0.012 (0.000-0.034) ng/mL Total Protein 6.0 L (6.3-8.2) g/dL Albumin 3.7 (3.5-5.0) g/dL Urine Color Urine Appearance (Clear) Urine pH (5.0-8.0) Ur Specific [place] (1.001-1.035) Urine Protein (Negative) Urine Glucose (UA) (Negative) Urine Ketones (Negative) Urine Blood (Negative) Urine Nitrite (Negative) Urine Bilirubin (Negative) Urine Urobilinogen (<2.0) mg/dL Ur Leukocyte Esterase (Negative) Urine RBC (0-5) /hpf Urine WBC (0-5) /hpf Ur Squamous Epith Cells (0-4) /hpf Urine HCG, Qual Detected (Not Detectd) Urine Opiates Screen (NotDetected) Ur Oxycodone Screen (NotDetected) Urine Methadone Screen (NotDetected) Ur Barbiturates Screen (NotDetected) U Tricyclic Antidepress (NotDetected) Ur Phencyclidine Scrn (NotDetected) Ur Amphetamines Screen (NotDetected) U Methamphetamines Scrn (NotDetected) U Benzodiazepines Scrn (NotDetected) Urine Cocaine Screen (NotDetected) U Marijuana (THC) Screen (NotDetected) 03/15/24 Range/Units 17:23 WBC (3.8-10.6) k/uL RBC (3.80-5.40) m/uL Hgb (11.4-16.0) gm/dL Hct (34.0-46.0) % MCV (80.0-100.0) fL MCH (25.0-35.0) pg MCHC (31.0-37.0) g/dL RDW (11.5-15.5) % Plt Count (150-450) k/uL MPV Neutrophils % % Lymphocytes % % Monocytes % % Eosinophils % % Basophils % % Neutrophils # (1.3-7.7) k/uL Lymphocytes # (1.0-4.8) k/uL Monocytes # (0-1.0) k/uL Eosinophils # (0-0.7) k/uL Basophils # (0-0.2) k/uL PT (10.0-12.5) sec INR (<1.2) APTT (22.0-30.0) sec Sodium (137-145) mmol/L Potassium (3.5-5.1) mmol/L Chloride (98-107) mmol/L Carbon Dioxide (22-30) mmol/L Anion Gap mmol/L BUN (7-17) mg/dL Creatinine (0.52-1.04) mg/dL Est GFR (CKD-EPI)AfAm (>60 ml/min/1.73 sqM) Est GFR (CKD-EPI)NonAf (>60 ml/min/1.73 sqM) Glucose (74-99) mg/dL POC Glucose (mg/dL) 83 (70-110) mg/dL POC Glu Resolution Specialist ID Rhein, Brent Calcium (8.4-10.2) mg/dL Total Bilirubin (0.2-1.3) mg/dL AST (14-36) U/L ALT (4-34) U/L Alkaline Phosphatase (38-126) U/L Creatine Kinase (30-135) U/L Troponin I (0.000-0.034) ng/mL Total Protein (6.3-8.2) g/dL Albumin (3.5-5.0) g/dL Urine Color Urine Appearance (Clear) Urine pH (5.0-8.0) Ur Specific [place] (1.001-1.035) Urine Protein (Negative) Urine Glucose (UA) (Negative) Urine Ketones (Negative) Urine Blood (Negative) Urine Nitrite (Negative) Urine Bilirubin (Negative) Urine Urobilinogen (<2.0) mg/dL Ur Leukocyte Esterase (Negative) Urine RBC (0-5) /hpf Urine WBC (0-5) /hpf Ur Squamous Epith Cells (0-4) /hpf Urine HCG, Qual (Not Detectd) Urine Opiates Screen (NotDetected) Ur Oxycodone Screen (NotDetected) Urine Methadone Screen (NotDetected) Ur Barbiturates Screen (NotDetected) U Tricyclic Antidepress (NotDetected) Ur Phencyclidine Scrn (NotDetected) Ur Amphetamines Screen (NotDetected) U Methamphetamines Scrn (NotDetected) U Benzodiazepines Scrn (NotDetected) Urine Cocaine Screen (NotDetected) U Marijuana (THC) Screen (NotDetected) Critical Care Time Critical Care Time: Yes Total Critical Care Time: 35 Disposition Clinical Impression: Cerebrovascular accident (CVA), , Headache Disposition: ADMITTED IP TO THIS [facility] Condition: Stable Is patient prescribed a controlled substance at d/c from ED?: No Referrals: Henry Mejía DO [Primary Care Provider] - 1-2 days Time of Disposition: 18:20
[2024-03-15 15:52] LABS: INR 1.2 (<1.2); Partial Thromboplastin Time 26.7 sec (22.0-30.0); Prothrombin Time 12.7 sec (10.0-12.5)
[2024-03-15 15:53] LABS: ALT 8 U/L (4-34); AST 15 U/L (14-36); African American GFR (CKD) >90 (>60 ml/min/1.73 sqM); Albumin 3.7 g/dL (3.5-5.0); Alkaline Phosphatase 35 U/L (38-126); Anion Gap 9 mmol/L; Blood Urea Nitrogen 4 mg/dL (7-17); Calcium 9.1 mg/dL (8.4-10.2); Carbon Dioxide 21 mmol/L (22-30); Chloride 105 mmol/L (98-107); Creatine Kinase 34 U/L (30-135); Glucose 83 mg/dL (74-99); Non-African American GFR(CKD) >90 (>60 ml/min/1.73 sqM); Potassium 4.2 mmol/L (3.5-5.1); Sodium 135 mmol/L (137-145); Total Bilirubin 0.3 mg/dL (0.2-1.3)
[2024-03-15] MEDS: ACETAMINOPHEN TAB 500 MG TAB PO STA (16:47)
[2024-03-15] MEDS: diphenhydrAMINE 50 MG/ML 1 ML VIAL IVP STA (16:48)
[2024-03-15] MEDS: ONDANSETRON 4 MG/2 ML VIAL IVP STA (17:06)
[2024-03-15 17:25] LABS: Glucose,Whole Blood 83 mg/dL (70-110)
[2024-03-15 17:40] LABS: Amphetamine Screen,Urine Not Detected (NotDetected); Appearance,Urine Clear (Clear); Barbiturate Screen,Urine Not Detected (NotDetected); Benzodiazepines Screen,Urine Not Detected (NotDetected); Bilirubin,Urine Negative (Negative); Blood,Urine Negative (Negative); Cocaine Screen,Urine Not Detected (NotDetected); Color,Urine Colorless; Glucose,Urine (UA) Negative (Negative); Ketones,Urine Negative (Negative); Leukocyte Esterase,Urine Small (Negative); Methadone Screen, Urine Not Detected (NotDetected); Nitrite,Urine Negative (Negative); Opiate Screen,Urine Not Detected (NotDetected); Oxycodone Screen, Urine Not Detected (NotDetected); PH, Urine 6.5 (5.0-8.0); Phencyclidine Screen,Urine Not Detected (NotDetected); Protein,Urine Negative (Negative); RBC,Urine 1 /hpf (0-5); Specific Gravity,Urine >1.050 (1.001-1.035); Squamous Epithelial Cell,Urine 7 /hpf (0-4); Tricyclic Antidepressant,Urine Not Detected (NotDetected); Urn Cannabinoid Scrn Detected (NotDetected); Urobilinogen,Urine <2.0 mg/dL (<2.0); WBC,Urine 1 /hpf (0-5)
--- NOTE | 2024-03-15 18:57 | US ---
EXAMINATION TYPE: Transabdominal DATE OF EXAM: 03/15/2024 6:45 PM COMPARISON: NONE CLINICAL INDICATION: Female, 23 years old with history of early preg; dates EXAM PERFORMED: Transvaginal (TV) and Transabdominal (TA) EXAM MEASUREMENTS: GESTATIONAL AGE / DATING Physician Established: Not yet established Dates by LMP: LMP unknown Dates by First Scan: No previous this is first scan Dates by Current Scan for: (9 weeks/0 days) EDC: 10/18/2024 MATERNAL ANATOMY Uterus: 8.6 x 6.1 x 8.0 cm Right Ovary: 3.7 x 1.7 x 2.1 cm Left Ovary: 3.4 x 2.1 x 2.4 cm Post CDS / Adnexa: wnl Presence of free fluid: no Presence of corpus luteal cyst: no Presence of subchorionic bleed: no GESTATION / SURVEY CRL: 2.28 cm (9 weeks/0 days) Yolk Sac (normal less than 6mm): 2 mm Heart Rate: 144 bpm Rhythm: Normal IUP: Viable IUP Beta HcG (if available): Not available at this time IMPRESSION: Single live intrauterine with calculated ultrasound age of 9 weeks 0 days by crown rump jerzy gth
[2024-03-15] MEDS: SODIUM CHLORIDE 0.9% 1,000 ML IV SCH (20:24)
[2024-03-15] MEDS: ASPIRIN 325 MG TAB PO STA (20:24)
[2024-03-16] MEDS ORDERED: ALBUTEROL NEBULIZED 2.5 MG/3 ML INHALATION PRN (01:02)
--- NOTE | 2024-03-16 01:20 | P.HPIM ---
History of Present Illness H&P Date: 03/15/24 Chief Complaint: Left-sided weakness and facial numbness Patient is a 23-year-old female with a past medical history of asthma. History of PFO, ADD/ADHD, prior history of smoking and occasional marijuana use presents to ER with complaints of strokelike symptoms. Patient states that she went to bed last night and started having migraine headache. She did take Tylenol which did not help. Patient was nauseated but finally went to sleep and today a.m. when she wake up she felt normal. She woke around 10 AM this morning. Started having left-sided facial numbness and hand and lower extremity weakness and had difficulty in walking. Patient was also noted to have slurred speech. Patient had similar symptoms with previous migraine headaches but not this severe. Patient concerned about having a stroke and came to ER. CT head showed no acute intracranial process. CT angiogram showed no evidence of dissection of the cervical internal carotid arteries or vertebral arteries or any evidence of significant stenosis at the carotid bifurcations. No evidence of intracranial high-grade stenosis or intracranial aneurysm. EKG showed sinus rhythm with sinus arrhythmia Laboratory data showed WBC 4.9 hemoglobin 13.2 and platelets 169 Sodium 135 potassium 4.2 chloride 105 bicarb is 21 BUN 14 creatinine 0.60 and blood sugar 83 AST 15 ALT 18 alk phos 35 troponin x 192 albumin 3.7 urinalysis is negative for infection UDS is positive for marijuana Review of Systems Constitutional: Patient denies any fever or chills . No generalized weakness or weight loss. Abdomen: Patient denied nausea vomiting and diarrhea and abdominal pain. Cardiovascular: Patient denies any chest pain or short of breath no palpitations. Respiratory: patient denied any cough is from production. No shortness of breath Neurologic: Patient denied any numbness or tingling headache. Musculoskeletal: Patient denies any complaints of joint swelling or deformity. Skin: Negative Psychiatric: Negative Endocrine: No heat or cold intolerance. No recent weight gain. Genitourinary: No dysuria or hematuria. All other 14 point ROS negative except the above Past Medical History Past Medical History: Asthma Additional Past Medical History / Comment(s): scoliosis, add, history of patent foramen ovale and arrhythmia-no meds History of Any Multi-Drug Resistant Organisms: MRSA Date of last positivie culture/infection: 2017 MDRO Source:: left hip, leg Past Surgical History: Appendectomy, Ear Surgery, Tonsillectomy Past Anesthesia/Blood Transfusion Reactions: No Reported Reaction Past Psychological History: ADD/ADHD Smoking Status: Former smoker Past Alcohol Use History: Occasional Past Drug Use History: Marijuana - Past Family History Mother Family Medical History: No Reported History Medications and Allergies Home Medications Medication Instructions Recorded Confirmed Type Albuterol Inhaler [Ventolin Hfa 2 puff INHALATION RT-Q6H PRN 03/15/24 03/15/24 History Inhaler] [id number] Acid 1 cap PO DAILY 03/15/24 03/15/24 History [-U Capsule (formulary)] Promethazine [Phenergan] 25 mg PO BID 03/15/24 03/15/24 History Allergies Allergy/AdvReac Type Severity Reaction Status Date / Time pineapple Allergy Severe Anaphylaxis Verified 03/15/24 19:23 matthews Allergy numbs her Verified 03/15/24 19:23 throat dexamethasone [From Decadron] Allergy Swelling Verified 03/15/24 19:23 dexamethasone sod phosphate Allergy Swelling Verified 03/15/24 19:23 [From Decadron] dexmethylphenidate HCl Allergy Nausea & Verified 03/15/24 19:23 [From Focalin] Vomiting latex Allergy Rash/Hives Verified 03/15/24 19:23 methylphenidate HCl Allergy see comment Verified 03/15/24 19:23 [From Concerta] sulfamethoxazole Allergy Unknown Verified 03/15/24 19:23 [From Bactrim] trimethoprim [From Bactrim] Allergy Unknown Verified 03/15/24 19:23 Physical Exam Vitals: Vital Signs Temp Pulse Resp BP Pulse Ox 03/15/24 18:56 67 18 98/52 100 03/15/24 16:46 89 18 107/67 100 03/15/24 15:12 98.6 F 82 18 110/66 100 Intake and Output 03/15/24 03/15/24 03/15/24 06:59 14:59 22:59 Other: Weight 52.617 kg PHYSICAL EXAMINATION: Patient is lying in the bed comfortably, no acute distress, awake alert and oriented.. HEENT: Normocephalic. Neck is supple. Pupils reactive. Nostrils clear. Oral cavity is moist. Neck reveals no JVD, carotid bruits, or thyromegaly. CHEST EXAMINATION: Trachea is central. Symmetrical expansion. Lung lópez clear to auscultation and percussion. CARDIAC: Normal S1, S2 with no gallops. No murmurs ABDOMEN: Soft. Bowel sounds normal. No organomegaly. No abdominal bruits. Extremities: reveal no edema. No clubbing or cyanosis Neurologically awake, alert, oriented x3 with well-coordinated movements. No focal deficits noted Skin: No rash or skin lesions. Psychiatric: Coperative. Nonsuicidal Musculoskeletal: No joint swelling or deformity. Normal range of motion. Results CBC & Chem 7: 03/15/24 15:21 03/15/24 15:21 Labs: Abnormal Lab Results - Last 24 Hours (Table) 03/15/24 03/15/24 03/15/24 Range/Units 15:21 15: 15:21 PT 12.7 H (10.0-12.5) sec INR 1.2 H (<1.2) Sodium 135 L (137-145) mmol/L Carbon Dioxide 21 L (22-30) mmol/L BUN 4 L (7-17) mg/dL Alkaline Phosphatase 35 L (38-126) U/L Total Protein 6.0 L (6.3-8.2) g/dL Ur Specific [place] >1.050 H (1.001-1.035) Ur Leukocyte Esterase Small H (Negative) Ur Squamous Epith Cells 7 H (0-4) /hpf U Marijuana (THC) Screen Detected H (NotDetected) Thrombosis Risk Factor Assmnt - DVT/VTE Prophylaxis DVT/VTE Prophylaxis: Mechanical Prophylaxis ordered Assessment and Plan Assessment: Left-sided facial numbness slurred speech and weakness likely due to complex migraine. CT head negative for acute CVA. CTA showed no significant stenosis. History of PFO History of migraine headaches marijuana use disorder Prior history of smoking 22-week intrauterine Asthma not in exacerbation ADD/ADHD DVT prophylaxis with SCDs Plan: Patient will be continued on telemetry. Continue with IV hydration. Send regimen for nausea. Patient was given a dose of Zofran and Bentyl in the ER which improved her symptoms. Currently weakness has resolved. Neurology was consulted for evaluation. Patient had CT head and CT angiogram of the head and neck in the ER. 2D echocardiogram was ordered. Continue to follow closely. Abstinence from marijuana has been counseled extensively. Time with Patient: Greater than 30
[2024-03-16 05:02] VITALS: RESP 18
[2024-03-16 08:46] LABS: African American GFR (CKD) >90 (>60 ml/min/1.73 sqM); Anion Gap 5 mmol/L; Blood Urea Nitrogen 5 mg/dL (7-17); Calcium 8.9 mg/dL (8.4-10.2); Carbon Dioxide 21 mmol/L (22-30); Chloride 108 mmol/L (98-107); Glucose 87 mg/dL (74-99); Non-African American GFR(CKD) >90 (>60 ml/min/1.73 sqM); Sodium 134 mmol/L (137-145)
[2024-03-16] MEDS: PRENATAL VIT-IRON-FOLIC ACID 1 EACH TABLET PO SCH (10:50)
[2024-03-16] MEDS: PROMETHAZINE 25 MG TAB PO PRN (10:50)
[2024-03-16 11:33] LABS: Chol/HDL Ratio 3.45 Ratio; LDL Cholesterol,Calculated 51.9 mg/dL (0.0-131.0); VLDL Calculation 19.08 mg/dL (5.00-40.00)
--- NOTE | 2024-03-16 16:05 | P.CNNES ---
History of Present Illness Consult date: 03/16/24 Requesting physician: Negrito Kaiser Reason for Consult: Left-sided weakness History of Present Illness: Patient is a 23-year-old right-handed female with history of migraines, currently 9 weeks , came to the hospital because of visual disturbance and left-sided paresthesias. Patient states that she started with migraine at around 6:30 PM on Saturday evening, 2 days ago. She went to bed at 11 PM that n ight, and woke up yesterday on Saturday at around 10 AM with some numbness of the left cheek. The migraine was still there on the right side. Later on she noticed her left arm felt weird and the vision was weird, as she could see only out of the right eye. When she closes her right eye, she felt dizzy, blurred vision and sometimes appeared brighter. She went downstairs, and her fianc's mother asked if she was okay. She asked her to sit down. She took her vitamins and the nausea pill at around noon. She then made some pancakes and felt nauseous. Her symptoms persisted with left-sided numbness and visual disturbance therefore she called the ambulance and came to the ER, arrived at the hospital at 2:45 PM. Her vitals at the scene was blood pressure 112/69, pulse rate 82, respiration 10, saturation 99% and blood sugar 87 mg/dL. After the CT head was done, she felt intense cold sensation on the left side of the body but not numbness. About [address] scan, the symptoms resolved except for migraine which is still present. It is not as bad at this time, about 2/10 whereas yesterday prior to arrival was 11 on a scale of 1-10. On arrival, stroke code was activated. Patient was considered not a candidate for TNK, because she was outside the window for thrombolysis when she arrived. Also there was no large vessel occlusion noted. Patient was given aspirin 324 mg in the ER. Patient does not smoke cigarettes. She does smoke marijuana sporadically. She did smoke marijuana in early part of because of weight loss and nausea. Denies any drug use. Patient has never tried Fioricet. Patient's family history positive for migraines. Patient herself has migraines as long as she can remember. She usually gets migraines about 3-4 times a week and if she takes the medication, goes away in about 1 to 2 hours otherwise can last for 2 or 3 days. She also gets an aura, consisting of visual disturbances of water running on the glass, that last for about 1 hour before she gets a headache. She usually takes Tylenol at that time to help. She has seen neurologist at [facility]. She tried Imitrex shots, but then she became with her daughter. She was prescribed Maxalt during to be taken very sporadically. Patient states that when she was with her son in 2018, her blood pressure became high as well as her pulse. She was hospitalized, an echo was done which revealed atrial septal defect. She followed up with Dr. Davies as an outpatient, who performed event monitor placement for 30 days, which did not r eveal any arrhythmia. Review of Systems All review of systems unremarkable except the pertinent positives and negatives mentioned in the HPI. Past Medical History Past Medical History: Asthma Additional Past Medical History / Comment(s): scoliosis, add, history of patent foramen ovale and arrhythmia-no meds History of Any Multi-Drug Resistant Organisms: MRSA Date of last positivie culture/infection: 2017 MDRO Source:: left hip, leg Past Surgical History: Appendectomy, Ear Surgery, Tonsillectomy Past Anesthesia/Blood Transfusion Reactions: No Reported Reaction Past Psychological History: ADD/ADHD Smoking Status: Former smoker Past Alcohol Use History: Occasional Past Drug Use History: Marijuana - Past Family History Mother Family Medical History: No Reported History Medications and Allergies Home Medications Medication Instructions Recorded Confirmed Type Albuterol Inhaler [Ventolin Hfa 2 puff INHALATION RT-Q6H PRN 03/15/24 03/15/24 History Inhaler] Zbl-Fafd-Vgowo Acid 1 cap PO DAILY 03/15/24 03/15/24 History [-U Capsule (formulary)] Promethazine [Phenergan] 25 mg PO BID 03/15/24 03/15/24 History Allergies Allergy/AdvReac Type Severity Reaction Status Date / Time pineapple Allergy Severe Anaphylaxis Verified 03/15/24 19:23 [email or web address] Allergy numbs her Verified 03/15/24 19:23 throat dexamethasone [From Decadron] Allergy Swelling Verified 03/15/24 19:23 dexamethasone sod phosphate Allergy Swelling Verified 03/15/24 19:23 [From Decadron] dexmethylphenidate HCl Allergy Nausea & Verified 03/15/24 19:23 [From Focalin] Vomiting latex Allergy Rash/Hives Verified 03/15/24 19:23 methylphenidate HCl Allergy see comment Verified 03/15/24 19:23 [From Concerta] sulfamethoxazole Allergy Unknown Verified 03/15/24 19:23 [From Bactrim] trimethoprim [From Bactrim] Allergy Unknown Verified 03/15/24 19:23 Physical Examination - Vital Signs Vital Signs: Vital Signs Temp Pulse Resp BP Pulse Ox 03/16/24 08:00 97.5 F L 75 18 100/56 100 03/16/24 05:16 98.1 F 73 18 100/56 98 03/16/24 04:00 72 18 95 03/16/24 03:00 75 17 96 03/16/24 01:28 99 19 112/73 95 03/16/24 01:17 77 18 112/73 99 03/15/24 18:56 67 18 98/52 100 03/15/24 16:46 89 18 107/67 100 03/15/24 15:12 98.6 F 82 18 110/66 100 Intake and Output 03/15/24 03/16/24 03/16/24 22:59 06:59 14:59 Other: Weight 52.617 kg Patient is a young female, very pleasant, in no acute distress. Patient is alert awake oriented to time place and person. Speech and language functions are normal. Patient can name and repeat very well. No aphasia or dysarthria. Attention, concentration and fund of knowledge is adequate. On cranial nerve examination, pupils are equal, round and reacting to light, visual lópez are full on confrontation, with no neglect on double simultaneous stimulation. Extraocular muscles are intact with no nystagmus. Face is symmetric, tongue protrudes to the midline. Palatal elevation and sensation normal, hearing and shoulder shrug normal, facial sensation normal. On muscle strength testing, there is no pronator drift and the strength is normal in arms and legs distally and proximally. Deep tendon reflexes are symmetric 1+ at the brachioradialis, 1+ at the biceps, 1+ knees and 2 ankles and plantars downgoing bilaterally. Sensory to touch is equal with no neglect on double simultaneous stimulation. Cerebellar function showed no ataxia for ohktoh-kh-jmat testing. No dysdiadochokinesia. No ataxia for zygq-py-khfq testing on either side. Tone and bulk of muscles normal. Gait deferred.. On general examination, there is no carotid bruit or murmur, S1-S2 audible. Chest is clear on consultation. Abdomen is soft nontender. No organomegaly, bowel sounds present. Peripheral pulses are present. No peripheral edema. Results - Laboratory Findings CBC and BMP: 03/15/24 15:21 03/16/24 08:05 Abnormal Lab Findings: Abnormal Labs 03/15/24 03/15/24 03/15/24 15:21 15:21 15:21 PT 12.7 H INR 1.2 H Sodium 135 L Chloride Carbon Dioxide 21 L BUN 4 L Alkaline Phosphatase 35 L Total Protein 6.0 L HDL Cholesterol Ur Specific [place] >1.050 H Ur Leukocyte Esterase Small H Ur Squamous Epith Cells 7 H U Marijuana (THC) Screen Detected H 03/16/24 08:05 PT INR Sodium 134 L Chloride 108 H Carbon Dioxide 21 L BUN 5 L Alkaline Phosphatase Total Protein HDL Cholesterol 29.00 L Ur Specific [place] Ur Leukocyte Esterase Ur Squamous Epith Cells U Marijuana (THC) Screen Assessment and Plan Assessment: * Possible complex migraine versus TIA. Patient had similar episode in the past as well. * Longstanding history of migraine headaches. * Currently 8 weeks . * History of atrial septal defect * History of marijuana use Plan: * Patient's migraine has remarkably improved, only 2/10 involving the right frontal region. Patient's examination is nonfocal. * CTA of head and neck revealed no evidence of dissection of the cervical internal carotid arteries or vertebral arteries or any evidence of significant stenosis at the carotid bifurcations. No evidence of intracranial high-grade stenosis or intracranial aneurysm. * 2D echo revealed normal left ventricular function with EF 55 to 60%. Left ventricular cavity size normal. No obvious regional wall motion abno rmalities. Normal left atrial size. No valvular abnormalities. Consider ERASMO to rule out intracardiac thrombus if clinically indicated. * Patient was given aspirin 324 mg in the ER. Will defer to OB for clearance for aspirin 81 mg, if indicated. * Patient also has history of atrial septal defect. Patient has previously seen Dr. Davies. Discussed with primary physician, to consider cardiology co nsultation for her history of ASD. * Lipid panel with cholesterol 100, LDL 51.9, HDL 29, triglycerides 95.4. Lipids are well-controlled. * As the symptoms have completely resolved, there is no indication for MRI. Risks outweigh the benefits (as patient is in the first trimester). * Regarding migraines, patient could be considered on Fioricet as needed, if cleared by OB. * Patient counseled about abstaining from marijuana. * Thank you for the consult. Neurologically clear otherwise. Time with Patient: Greater than 30
[2024-03-16 16:12] VITALS: BP 142/75; PULSE 89; TEMP 98.2
--- NOTE | 2024-03-16 18:00 | CA ---
Transthoracic Echo Report Name: Nenita Chapman Age: 23 Gender: F : 2000 Exam Date: 03/16/2024 14:02 Exam Location: [facility] Ht (in): 66 Wt (lb): 116 Ordering Physician: Negrito Kaiser MD Attending/Referring Phys: [id number], Awilda [employer] Kailey Wallis RDCS Procedure CPT: Indications: Thrombus Cardiac Hx: Technical Quality: Good Contrast 1: Total Dose (mL): Contrast 2: Total Dose (mL): MEASUREMENTS (Male / Female) Normal Values 2D ECHO LV Diastolic Diameter PLAX 4.4 cm 4.2 - 5.9 / 3.9 - 5.3 cm LV Systolic Diameter PLAX 3.1 cm IVS Diastolic Thickness 0.7 cm 0.6 - 1.0 / 0.6 - 0.9 cm LVPW Diastolic Thickness 0.7 cm 0.6 - 1.0 / 0.6 - 0.9 cm LV Relative Wall Thickness 0.3 RV Internal Dim ED PLAX 2.8 cm LA Systolic Diameter LX 2.7 cm 3.0 - 4.0 / 2.7 - 3.8 cm LV Diastolic Volume MOD 4C 86.8 cm??? LV Systolic Volume MOD 4C 41.8 cm??? LV Ejection Fraction MOD 4C 51.9 % LV Cardiac Index MOD 4C 1965.8 cm???/min???m??? LV Diastolic Length 4C 7.7 cm LV Systolic Length 4C 6.5 cm LV Diastolic Volume MOD 2C 99.3 cm??? LV Systolic Volume MOD 2C 35.9 cm??? LV Ejection Fraction MOD 2C 63.8 % LV Cardiac Index MOD 2C 2769.4 cm???/min???m??? LV Diastolic Length 2C 9.1 cm LV Systolic Length 2C 7.0 cm LA Volume 39.8 cm??? 18 - 58 / 22 - 52 cm??? LA Volume Index 25.6 cm???/m??? 16 - 28 cm???/m??? M-MODE Aortic Root Diameter MM 2.8 cm MV E Point Septal Separation 0.5 cm DOPPLER AV Peak Velocity 130.1 cm/s AV Peak Gradient 6.8 mmHg MV Area PHT 3.0 cm??? Mitral E Point Velocity 85.5 cm/s Mitral A Point Velocity 62.6 cm/s Mitral E to A Ratio 1.4 MV Deceleration Time 253.7 ms TR Peak Velocity 212.1 cm/s TR Peak Gradient 18.0 mmHg Right Ventricular Systolic Press 22.5 mmHg FINDINGS Left Ventricle Left ventricular ejection fraction is estimated at 55-60 %. Left ventricular cavity size normal. Left ventricular wall thickness normal. No obvious regional wall motion abnormalities. Right Ventricle Normal right ventricular size. Right ventricular systolic pressure within normal limits. Right Atrium Normal right atrial size. Left Atrium Normal left atrial size. Mitral Valve Structurally normal mitral valve. Mild mitral regurgitation. Aortic Valve Trileaflet aortic valve. No aortic valve stenosis or regurgitation. Tricuspid Valve Structurally normal tricuspid valve. Mild tricuspid regurgitation. Pulmonic Valve Structurally normal pulmonic valve. No pulmonic regurgitation. Pericardium No pericardial effusion. Aorta Normal size aortic root and proximal ascending aorta. CONCLUSIONS Normal LV function Mild mitral regurgitation Consider transesophageal echo to definitively rule out intracardiac thrombus if clinically indicated Previewed by: Dr. Asim Vergara MD (Electronically Signed) Final Date: 16 March 2024 17:59
--- NOTE | 2024-03-17 08:27 | DS ---
DISCHARGE SUMMARY FINAL DIAGNOSES: 1. Left-sided facial numbness and slurred speech, possibly complex migraine. 2. History of PFO. 3. History of migraine headaches. 4. THC previously. 5. A 22-week intrauterine . DISCHARGE DISPOSITION: The patient is discharged in stable condition. PROGNOSIS: Guarded. cleared by Neurology. HISTORY OF PRESENT ILLNESS: This is a 23-year-old woman with a past medical history of multiple medical problems, is 22-week , was admitted with above-mentioned symptoms. The patient was evaluated and Neurology cleared the patient for discharge and albuterol, Phenergan, and multivitamin has been recommended. Please see the discharge reconciliation sheet for list of medications. MMODL / IJN: [id number] / MTDD
== END 2024-03-16 15:54 | disposition home or self-care (01) ==
LOC: EC 14:45 → INTOOBSV 19:11 → 3SCARD 19:11 → UNDODISIN 03-16 15:54
PROVIDERS: ADMIT Internal Medicine; ATTEND Internal Medicine
DX: O99.351 Diseases of the nervous system complicating pregnancy, first trimester (principal); R29.810 Facial weakness; R47.81 Slurred speech; G43.109 Migraine with aura, not intractable, without status migrainosus; O99.411 Diseases of the circulatory system complicating pregnancy, first trimester; Q21.12 Patent foramen ovale; O99.341 Other mental disorders complicating pregnancy, first trimester; F90.9 Attention-deficit hyperactivity disorder, unspecified type; O99.511 Diseases of the respiratory system complicating pregnancy, first trimester; J45.909 Unspecified asthma, uncomplicated; F12.90 Cannabis use, unspecified, uncomplicated; Z3A.09 9 weeks gestation of pregnancy; Z91.040 Latex allergy status; Z88.1 Allergy status to other antibiotic agents; Z88.2 Allergy status to sulfonamides; Z88.8 Allergy status to other drugs, medicaments and biological substances; Z91.018 Allergy to other foods; Z87.891 Personal history of nicotine dependence
CPT/HCPCS: 96361; 96374; 96375; 99291; 36415; 93005; 93306; 80061; 80053; 80048; 82550; 84484; 85025; 85610; 85730; 81001; 81025; 80306; 76801; 76817; 70496; 70450; 70498; G0378 ×2; J1200; J2405; S0197; Q9967